=== PATIENT | female | born 1940 | race Caucasian/White ===

== ENCOUNTER 2018-05-30 18:10 | Observation (INO) ==
[2018-05-30] MEDS ORDERED: Dextrose Gel 15 GM/37.5 ML TUBE PO PRN ×2 (22:35)
[2018-05-30] MEDS ORDERED: D5% in Water 1,000 ML IVC PRN (22:35)
[2018-05-30] MEDS ORDERED: *HR* Dextrose 50 % in Water (Syg) 50 ML SYRINGE IVP PRN (22:35)
[2018-05-30] MEDS: Insulin LISPRO 300 UNITS/3 ML VIAL SQ SCH (23:03)
[2018-05-30] MEDS: hydroCHLOROthiazide 25 MG TABLET PO SCH (23:03)
[2018-05-30] MEDS: Insulin DETEMIR 100 UNIT/ML X5UNITS SQ SCH (23:03)
[2018-05-30] MEDS ORDERED: Naloxone 0.4 MG/ML INJ IVP PRN (23:50)
--- NOTE | 2018-05-31 00:06 | Internal Med History&Physical ---
Date of Encounter: 05/31/18 Time of Encounter: 21:00 Internal Medicine - H&P: HPI Chief complaint: Bilateral upper extremity numbness Admitted From: Home Plans for Post Hospital Care: Home History of present illness: Ms. Castañeda is a 77 year old female Patient was at her physical therapists when they noticed that her blood pressure was high, and she had bilateral hand numbness. She sent to the emergency room for recheck and her blood pressure was still elevated. She states she did not take her medication this morning and that that is likely why it was elevated. She began having numbness in her left hand around Wednesday and then a similar numbness on the right. She had a spinal injection about a week ago for her lower extremity pain, and she has a known history of spinal stenosis. She denies nausea, vomiting, chest pain, shortness of breath, blood in her stool, Leg swelling, falls and dysuria. She was thought to be having a stroke, and head CT showed no acute intracranial abnormalities. She does have diffuse cerebral atrophy with chronic small vessel disease. Past Med Surg Social Fam HX - Past Medical History Medical history: diabetes, GERD, hypertension, thyroid disease, other Additional medical history: spinal stenosis Psychiatric history: no psych history - Past Surgical History Surgical History: appendectomy, hysterectomy Additional surgical history: partial hysterectomy , - Social History Smoking Status: Former smoker Smokeless Tobacco Status: No Alcohol use: none Drug use: none - Family History Mother Living Status: Age at : 84 Hx Family Cardiac Disorders: Yes Hx Family Endocrine Disorder: Yes (dm) Father Living Status: Age at : 60 Internal Medicine - H&P: Meds Acetaminophen w/Cod 300-30 mg [Tylenol w/Codeine #3] 1 each PO Q6HR PRN [History] Atenolol 100 mg PO DAILY 05/30/18 [History] Insulin Glargine,Hum.rec.anlog [Lantus Solostar] 40 unit SQ HS 05/30/18 [History ] Isosorbide MONOnitrate [Isosorbide Mononitrate ER] 120 mg PO BID 05/30/18 [ History] Levothyroxine [Synthroid] 112 mcg PO 0630 05/30/18 [History] Omeprazole [PriLOSEC] 20 mg PO DAILY 05/30/18 [History] Gabapentin [Neurontin] 300 mg PO TID 05/31/18 [History] Olmesartan/Hydrochlorothiazide [Benicar Hct 40-12.5 mg Tablet] 1 tab PO DAILY [History] 3 Allergy/AdvReac Type Severity Reaction Status Date / Time No Known Allergies Allergy Verified 05/18/18 14:16 All Systems PM: A 10-system review of systems was performed and is negative for pertinent findings except as documented above in the HPI. - Constitutional Vitals: Temp Pulse Resp BP Pulse Ox 98.0 F 55 16 177/68 98 05/30/18 23:51 05/30/18 23:51 05/30/18 23:51 05/30/18 23:51 05/30/18 23:51 General appearance: Present: A&O X 3, pleasant, no acute distress - Head Head exam: Present: normal inspection - Eye Eye exam: Present: EOMI, normal appearance - Neck Neck exam general surgery: Present: full ROM. Absent: tenderness - Respiratory Respiratory exam: Present: CTAB. Absent: chest wall tenderness, wheezes - Cardiovascular Cardiovascular exam: Present: RRR, systolic murmur. Absent: diastolic murmur - GI/Abdominal GI/Abdominal exam: Present: normal bowel sounds. Absent: firm, tenderness - Extremities Exam Extremities exam: Present: full ROM, warm, radial pulses palpable and symmetrical. Absent: calf tenderness, tenderness Additional comments: weakness noted on the left lower extremity, no different form previous as per patient. - Neurological Exam Neurological exam: Present: alert, CN II-XII intact, motor sensory deficit, oriented X3. Absent: no focal deficits, strengths equal and symetr throughout, facial droop, speech deficit Additional comments: Strength in left lower extremity less than right, no change from previous as per patient. Upper extremities equal bilaterally. sensation intact throughout. Internal Med - H&P Results - Labs CBC & Chem 7: 05/31/18 05:30 05/31/18 05:30 - Assessment and plan (1) Numbness and tingling of both upper extremities Current Visit: Yes Status: Acute Assessment and plan: Likely not stroke as patient's symptoms are bilateral, and she has a known history of spinal stenosis and multiple areas of her spine. She had a spine injection earlier last month as well. Neurology consult Consider MRI to investigate any possible changes in her spine. (2) Hypertension Current Visit: Yes Status: Acute Assessment and plan: Elevated, the patient did not take her home medication. Continue home meds Continue to monitor Qualifiers: Qualified Code(s): I10 - Essential (primary) hypertension (3) Hypothyroid Current Visit: Yes Status: Acute Assessment and plan: Continue home meds Qualifiers: Qualified Code(s): E03.9 - Hypothyroidism, unspecified (4) Thrombocytopenia Current Visit: No Status: Acute Assessment and plan: Platelets were 84 in the ER, a review of her other lab work shows this is about where she was 3 years ago. Consider thrombocytopenia work up Continue to monitor. (5) Hyponatremia Current Visit: No Status: Acute Assessment and plan: Sodium was 130 in the ER. Likely low because patient did not eat much today, as she was seeing her doctor this morning, and then went to the ER right after. Will try normal saline fluid resuscitation Continue to monitor. (6) Diabetes Current Visit: Yes Status: Acute Assessment and plan: On insulin at home, regularly takes 40 units of lantus at night. Patient has not eaten today, will start her on lower dose of insulin overnight. Montior sugars ACHS Low dose sliding scale insulin. Qualifiers: Diabetes mellitus type: type 2 Qualified Code(s): E11.9 - Type 2 diabetes mellitus without complications; Z79.4 - FDC (current) use of insulin (7) DVT prophylaxis Current Visit: Yes Status: Acute Assessment and plan: SCDs as patient has low platelet levels. - Time Spent With Patient Total time spent is greater than 50% in coordination of care (as documented) at patient's floor/unit and/or counseling patient:
[2018-05-31] MEDS: *HR* Acetaminophen w/Cod 300-30 mg 1 TAB TABLET PO PRN ×2 (00:28→21:10)
[2018-05-31 06:29] LABS: Hematocrit 37.4 % (35.3-44.9); Immature Platelets 14.2 % (1.1-6.1); Mean Corpuscular HGB Conc 34.8 g/dL (31.6-35.5); Mean Corpuscular Hemoglobin 30.8 pg (28.0-33.3); Mean Corpuscular Volume 88.6 fL (83.0-100.0); Mean Platelet Volume 13.6 fL (9.4-12.4); Red Blood Count 4.22 M/mcL (3.82-4.97); Red Cell Distribution Width 13.1 % (11.5-14.5)
[2018-05-31 06:48] LABS: BUN/Creatinine Ratio 17 (6-26); Blood Urea Nitrogen 9 mg/dL (8-23); Calcium 9.6 mg/dL (8.6-10.3); Carbon Dioxide 26 mEq/L (23-29); Chloride 99 mEq/L (98-107); Glucose 182 mg/dL (70-105); Osmolality,Calculated 279 (280-300); Potassium 3.3 mEq/L (3.5-5.1); Sodium 133 mEq/L (136-145); eGFR For African Americans > 60 (> 60); eGFR For Non-African Americans > 60 (> 60)
[2018-05-31] MEDS: hydroCHLOROthiazide 25 MG TABLET PO SCH (08:08)
[2018-05-31] MEDS: Insulin LISPRO 300 UNITS/3 ML VIAL SQ SCH ×4 (08:09→21:14)
--- NOTE | 2018-05-31 13:27 | Neurology - Consult Note ---
Date of Encounter: 05/31/18 Time of Encounter: 13:32 Assessment and Plan (1) Cerebrovascular accident Current Visit: No Status: Acute Patient with elevated blood pressure who experiencing numbness to her upper extremities lasting less than few hours in duration, with total resolution. She questionable right facial droop. Patient missed two days of BP meds and symptoms may be related to focal neurological symptoms as result of elevated BP. Will recommend MRI of brain to rule out acute infarct. If MRI of brain returns negative then no further testing appears necessary. If MRI of brain returns positive for acute stroke then standard stroke work up will be recommended. Aspirin will be recommended if MRI of brain showed positive stroke. Please continue medical and supportive care. Qualifiers: CVA mechanism: unspecified Qualified Code(s): I63.9 - Cerebral infarction, unspecified History of Present Illness Chief complaint: arm/hand numbness HPI: Ms. Castañeda is a 77 year old female with PMH significant for HTN, DM, thyroid disease, lumbar spondylosis, lumbar DDD who developed elevated BP and numbness to her arms and hands. patient was receiving PT yesterday morning and she states that she missed her BP medication and was found to have elevated BP. She also experienced numbness to her both hands and arms and was admitted to be evaluated for possible stroke. At present time her symptoms essentially resolved. She has no discomforts. She did get lumbar epidural injection for back pain few days ago. Past Med Surg Social Fam HX - Past Medical History Medical history: diabetes, GERD, hypertension, thyroid disease, other Additional medical history: spinal stenosis Psychiatric history: no psych history - Past Surgical History Surgical History: appendectomy, hysterectomy Additional surgical history: partial hysterectomy , - Social History Smoking Status: Former smoker Smokeless Tobacco Status: No Alcohol use: none Drug use: none - Family History Mother Living Status: Age at : 84 Hx Family Cardiac Disorders: Yes Hx Family Endocrine Disorder: Yes (dm) Father Living Status: Age at : 60 Medications and Allergies Acetaminophen w/Cod 300-30 mg [Tylenol w/Codeine #3] 1 each PO Q6HR PRN [History] Atenolol 100 mg PO DAILY 05/30/18 [History] Insulin Glargine,Hum.rec.anlog [Lantus Solostar] 40 unit SQ HS 05/30/18 [History ] Isosorbide MONOnitrate [Isosorbide Mononitrate ER] 120 mg PO BID 05/30/18 [ History] Levothyroxine [Synthroid] 112 mcg PO 0630 05/30/18 [History] Omeprazole [PriLOSEC] 20 mg PO DAILY 05/30/18 [History] Gabapentin [Neurontin] 300 mg PO TID 05/31/18 [History] Olmesartan/Hydrochlorothiazide [Benicar Hct 40-12.5 mg Tablet] 1 tab PO DAILY [History] 3 Allergy/AdvReac Type Severity Reaction Status Date / Time No Known Allergies Allergy Verified 05/18/18 14:16 All Systems: The remainder of the systems were reviewed and are negative Physical Examination - Vital Signs Vital Signs: Initial Vital Signs Temp Pulse Resp BP Pulse Ox 97.6 F 61 16 213/75 98 05/30/18 19:20 05/30/18 19:20 05/30/18 19:20 05/30/18 19:20 05/30/18 19:20 - Constitutional General appearance: comfortable - Neurologic Detailed motor examination: full strength in all major muscle groups Motor examination - right side: 5/5: deltoids, biceps, triceps, wrist flexion, wrist extension, dermatological surgeon, hip flexors, tibialis Anterior, quadriceps, toe extension (EHL), plantarflexion Motor examination - left side: 5/5: deltoids, biceps, triceps, wrist flexion, wrist extension, hip flexors, dermatological surgeon, quadriceps, tibialis Anterior, toe extension (EHL), plantarflexion Detailed sensory examination: intact Posture: other (None) Reflexes: Biceps: 1+, Triceps: 1+, Brachioradialis: 1+, Patella: 1+, Achilles: 1 + Mental Status Examination: awake, alert, oriented to person, oriented to place, oriented to time, follows commands appropriately, answers questions appropriately, no agnosia, no aphasia, no aproxia Cranial nerve examination: PERRL, EOMI, visual arenas intact, corneal reflexes brisk symmetrically, sensory to face intact, mastication intact, no facial asymmetry is present (Slight right facial asymmetry noted, disappears when smiling), no dysarthria, hearing is intact symmetrically, soft palate elevates bilaterally upon phonation, gag reflex intact, flexes SCM and trapezius muscles symmetrically with full power, tongue protrudes midline, no atrophy or facial fasiculations present Cerebellar examination: no dysmetria, performs finger to nose and heel to cash symmetrically without ataxia, no gait ataxia, no truncal ataxia, no difficulty with rapid alternating movements Results - Laboratory Findings CBC and BMP: 05/31/18 05:30 05/31/18 05:30 Abnormal lab findings: Abnormal lab results Plt Count 60 K/mcL (140-400) L 05/31/18 05:30 MPV 13.6 fL (9.4-12.4) H 05/31/18 05:30 Immature Plt Fraction 14.2 % (1.1-6.1) H 05/31/18 05:30 Sodium 133 mEq/L (136-145) L 05/31/18 05:30 Potassium 3.3 mEq/L (3.5-5.1) L 05/31/18 05:30 Creatinine 0.53 mg/dL (0.60-1.20) L 05/31/18 05:30 Glucose 182 mg/dL (70-105) H 05/31/18 05:30 Calculated Osmolality 279 (280-300) L 05/31/18 05:30 Consult Discharge Plan - Plan Referrals: Vignesh Ragland, SHAKER OPERATOR [Primary Care Provider] -
--- NOTE | 2018-05-31 16:20 | Internal Med Progress Note ---
Date of Encounter: 05/31/18 Time of Encounter: 09:35 - Assessment and plan (1) Hypokalemia Current Visit: Yes Status: Acute Assessment and plan: PO Supplement, monitor labs. (2) DVT prophylaxis Current Visit: Yes Status: Acute Assessment and plan: SCD (3) Diabetes Current Visit: Yes Status: Chronic Assessment and plan: SSI, diabetic diet, accuchecks achs Qualifiers: Diabetes mellitus type: type 2 Qualified Code(s): E11.9 - Type 2 diabetes mellitus without complications; Z79.4 - USP (current) use of insulin (4) Hypertension Current Visit: Yes Status: Chronic Assessment and plan: Chronic. Continue home medications. Qualifiers: Hypertension type: essential hypertension Qualified Code(s): I10 - Essential (primary) hypertension (5) Hypothyroid Current Visit: Yes Status: Chronic Assessment and plan: Continue. Home medications. Qualifiers: Hypothyroidism type: unspecified Qualified Code(s): E03.9 - Hypothyroidism , unspecified (6) Numbness and tingling of both upper extremities Current Visit: Yes Status: Acute Assessment and plan: Pt reports tingling to BUE. Pt was at PT and was found to have HTN and had not taken her antihypertensive medications for 2 days. Patient reports symptoms are improving today. She has no neurological or sensory deficits. Patient was evaluated by neurology, noted facial droop. Brain MRI ordered. Awaiting results of MRI. Continue telemetry (7) Hyponatremia Current Visit: Yes Status: Acute Assessment and plan: Continue to monitor. (8) Thrombocytopenia Current Visit: Yes Status: Chronic Assessment and plan: Patient reports history of thrombocytopenia dating back 30 or 40 years. Patient reports that she has never had a workup. Continue to monitor, consider oncology consultation if level continues to decrease overnight. SCDs for DVT prophylaxis - Time Spent With Patient Total time spent is greater than 50% in coordination of care (as documented) at patient's floor/unit and/or counseling patient: less than 15 minutes - Subjective Interval history: Patient was seen and assessed at bedside at 9:35 AM. Patient reports she recently had a lumbar epidural after several months of numbness and tingling to bilateral lower extremities. Patient reports that she has had numbness and tingling of bilateral upper extremities for 1 day. She reports that she is being seen at physical therapy was found to be hypertensive, she states that she had not taken any of her antihypertensive medications for 2 days. Today, patient denies nausea, vomiting, vision changes, neck pain, headache. She denies chest pain, shortness of breath, abdominal pain, nausea or vomiting. She denies diarrhea. At this time, MRI results are not available, patient will stay again overnight be reassessed in the morning. - Constitutional Vitals: Temp Pulse Resp BP Pulse Ox 98.5 F 48 14 162/75 95 05/31/18 11:14 05/31/18 11:14 05/31/18 11:14 05/31/18 11:14 05/31/18 11:14 General appearance: Present: cooperative, A&O X 3, pleasant, no acute distress, answers questions appropriately - Head Head exam: Present: atraumatic, normal inspection, normocephalic - Eye Eye exam: Present: normal appearance, conjuntiva pink, sclera anicteric - Neck Neck exam general surgery: Present: normal inspection, supple, trachea midline. Absent: lymphadenopathy, tenderness - Respiratory Respiratory exam: Present: CTAB. Absent: accessory muscle use, rales, respiratory distress, rhonchi, wheezes - Cardiovascular Cardiovascular exam: Present: RRR, +S1, +S2. Absent: diastolic murmur, gallop, rubs, systolic murmur - GI/Abdominal GI/Abdominal exam: Present: normal bowel sounds, soft. Absent: distended, hepatomegaly, tenderness - Extremities Exam Extremities exam: Present: normal capillary refill, normal inspection, warm, radial pulses palpable and symmetrical. Absent: calf tenderness, cyanotic, pedal edema, tenderness - Neurological Exam Neurological exam: Present: alert, oriented X3, no focal deficits, facial droop. Absent: speech deficit - Skin Skin exam: Present: dry, intact, normal color, warm. Absent: rash Internal Medicine: Result - Labs CBC & Chem 7: 05/31/18 05:30 05/31/18 05:30 Labs: Short CBC 05/31/18 Range/Units 05:30 WBC 4.8 (4.3-11.1) K/mcL Hgb 13.0 (11.5-15.4) g/dL Hct 37.4 (35.3-44.9) % Plt Count 60 L (140-400) K/mcL BMP 05/31/18 05:30 Sodium 133 L Potassium 3.3 L Chloride 99 Carbon Dioxide 26 BUN 9 Creatinine 0.53 L Glucose 182 H Calcium 9.6 - VTE Documentation of Mechanical Device: Graduated compression elastic hosiery Consult Discharge Plan - Plan Referrals: Vignesh Ragland AIRPORT OPERATIONS SPECIALIST [Primary Care Provider] -
[2018-05-31] MEDS: Insulin DETEMIR 100 UNIT/ML X5UNITS SQ SCH (21:11)
[2018-06-01 07:14] VITALS: BP 160/87
[2018-06-01 07:27] LABS: Eosinophils % 1.3 %; Mean Corpuscular Volume 88.3 fL (83.0-100.0)
[2018-06-01 07:29] LABS: Eosinophils # 0.1 K/mcL (0.0-0.6); Hematocrit 39.1 % (35.3-44.9); Hemoglobin 13.9 g/dL (11.5-15.4); Immature Platelets 13.7 % (1.1-6.1); Lymphocytes # 1.4 K/mcL (0.6-4.6); Lymphocytes % 31.9 %; Mean Corpuscular HGB Conc 35.5 g/dL (31.6-35.5); Mean Corpuscular Hemoglobin 31.4 pg (28.0-33.3); Mean Platelet Volume 13.4 fL (9.4-12.4); Monocytes # 0.4 K/mcL (0.0-1.3); Monocytes % 9.7 %; Neutrophils # 2.6 K/mcL (1.6-8.9); Platelet Count 59 K/mcL (140-400); Red Blood Count 4.43 M/mcL (3.82-4.97); Segmented Neutrophils % 57.1 %
[2018-06-01 07:41] LABS: BUN/Creatinine Ratio 18 (6-26); Blood Urea Nitrogen 11 mg/dL (8-23); Calcium 9.5 mg/dL (8.6-10.3); Carbon Dioxide 26 mEq/L (23-29); Chloride 101 mEq/L (98-107); Glucose 139 mg/dL (70-105); Osmolality,Calculated 278 (280-300); Potassium 3.6 mEq/L (3.5-5.1); Sodium 133 mEq/L (136-145); eGFR For African Americans > 60 (> 60); eGFR For Non-African Americans > 60 (> 60)
[2018-06-01] MEDS: Insulin LISPRO 300 UNITS/3 ML VIAL SQ SCH (07:41)
--- NOTE | 2018-06-01 07:55 | Discharge Summary ---
- NOTES TO OUTPATIENT PROVIDER Notes to Outpatient Provider: Pt was admitted and evaluated for BUE numbness and tingling and mild facial droop. Pt was being seen at PT and was found to have BUE numbness and tingling, pt had not had any antihypertensives for 2 days. MRI brain negative for acute infarct. Pt has received her medications and symptoms resolved. She still has mild hypertension and HTCZ was increased to 25mg po daily. Recommend close follow up after discharge for medication adjustments. Date of Encounter: 06/01/18 Time of Encounter: 09:40 - Discharge Diagnosis (1) Hypokalemia Priority: Secondary Status: Resolved (2) DVT prophylaxis Priority: Secondary Status: Acute Assessment and Plan: SCDs ordered. (3) Diabetes Priority: Secondary Status: Chronic Assessment and Plan: Resume home medications and accucheck regimen, diabetic diet. Qualifiers: Diabetes mellitus type: type 2 Diabetes mellitus terminal supervisor insulin use: unspecified snf insulin use status Diabetes mellitus complication status : without complication Qualified Code(s): E11.9 - Type 2 diabetes mellitus without complications (4) Hypertension Priority: Secondary Status: Chronic Assessment and Plan: Chronic. Continue home medications. Mild hypertension, HCTZ has been increased to 25mg po daily. Follow up with PCP for monitoring and medication changes as needed. Qualifiers: Hypertension type: essential hypertension Qualified Code(s): I10 - Essential (primary) hypertension (5) Hypothyroid Priority: Secondary Status: Chronic Assessment and Plan: Continue home medications. Qualifiers: Hypothyroidism type: unspecified Qualified Code(s): E03.9 - Hypothyroidism , unspecified (6) Numbness and tingling of both upper extremities Priority: Primary Status: Acute Assessment and Plan: Pt reports tingling to BUE that has resolved. Secondary to HTN, noncompliance with medication regimen. She has no neurological or sensory deficits. Patient was evaluated by neurology, I appreciate Dr. Stark's recommendations. Brain MRI without acute infarct, hemmorrhage. Chronic small vessel ischemic white matter disease and chronic lacunar infarcts within bilateral basal ganglia were noted. There is noted diffuse cerebral volume loss and left sphenoid and left posterior ethmoid air cell sinus disease. Brain MRI 05/31/18 13:14 IMPRESSION: No acute infarct, intracranial hemorrhage, or significant mass effect. Chronic small vessel ischemic white matter disease. Chronic lacunar infarcts within bilateral basal ganglia. Diffuse cerebral volume loss. Left sphenoid and left posterior ethmoid air cell sinus disease. D/ / 05/31/2018 16:42:17 Luis Dean MD / earsushma Interpreting Provider: Luis Dean MD Continue telemetry (7) Hyponatremia Priority: Secondary Status: Acute Assessment and Plan: Improving. (8) Thrombocytopenia Priority: Secondary Status: Chronic Assessment and Plan: Patient reports history of thrombocytopenia dating back 30 or 40 years. Patient reports that she has never had a workup. [facility] today is a [facility] , appointment will be scheduled by them. SCDs for DVT prophylaxis Hospital course: Ms. Castañeda is a 77 year old female who presented to the emergency department from physical therapy with numbness and tingling of bilateral upper extremities. Symptoms resolved over the course of her stay. Patient was found to have not taken her antihypertensives for 2 days prior to admission. She was evaluated by neurology, no further testing is required. Brain MRI is negative for any acute processes, infarct, hemorrhage or mass. Patient reports resolution of symptoms prior to discharge today. Her labs were stable with mild hyponatremia. Patient also with chronic thrombocytopenia that she states she has had for at least 30 years. Patient will need to follow up with hematology oncology for continued evaluation. Request was entered. Patient is stable and appropriate for discharge. Discharge discussed with: patient, family - Time Spent with Patient Total time spent providing and/or coordinating discharge services: Less than 30 minutes - Discharge Medications Prescriptions: hydroCHLOROthiazide [Hydrochlorothiazide] 25 mg PO DAILY #30 tablet Home Medications: Acetaminophen w/Cod 300-30 mg [Tylenol w/Codeine #3] 1 each PO Q6HR PRN [History] Atenolol 100 mg PO DAILY 05/30/18 [History] Insulin Glargine,Hum.rec.anlog [Lantus Solostar] 40 unit SQ HS 05/30/18 [History ] Isosorbide MONOnitrate [Isosorbide Mononitrate ER] 120 mg PO BID 05/30/18 [ History] Levothyroxine [Synthroid] 112 mcg PO 0630 05/30/18 [History] Omeprazole [PriLOSEC] 20 mg PO DAILY 05/30/18 [History] Gabapentin [Neurontin] 300 mg PO TID 05/31/18 [History] Olmesartan/Hydrochlorothiazide [Benicar Hct 40-12.5 mg Tablet] 1 tab PO DAILY [History] hydroCHLOROthiazide [Hydrochlorothiazide] 25 mg PO DAILY #30 tablet 06/01/18 [Rx ] Allergies/Adverse Reactions: 3 Allergy/AdvReac Type Severity Reaction Status Date / Time No Known Allergies Allergy Verified 05/18/18 14:16 Date of admission: 05/30/18 19:05 Primary care physician: Vignesh Ragland CNP Consults: 05/31/18 12:58 Consult to Neurology [CONS] Routine Consulting Provider: Neurology [facility] Reason for Consult: Numbness and tingling to BUE, recent epidural for low back pain. No injury to neck or back since. No deficit noted. Time Notified: 10:30 Call Completed: Yes Discharging clinician: Vivi Perry Anticipated date of discharge: 06/01/18 - Constitutional Vitals: Temp Pulse Resp BP Pulse Ox 97.3 F L 53 16 160/87 96 06/01/18 07:07 06/01/18 07:07 06/01/18 07:07 06/01/18 07:07 06/01/18 07:07 General appearance: Present: cooperative, A&O X 3, pleasant, no acute distress, answers questions appropriately - Head Head exam: Present: atraumatic, normal inspection, normocephalic - Eye Eye exam: Present: normal appearance, conjuntiva pink, sclera anicteric - Neck Neck exam general surgery: Present: supple, trachea midline. Absent: lymphadenopathy, tenderness - Respiratory Respiratory exam: Present: CTAB. Absent: accessory muscle use, chest wall tenderness, rales, respiratory distress, rhonchi, wheezes - Cardiovascular Cardiovascular exam: Present: RRR, +S1, +S2. Absent: diastolic murmur, gallop, rubs, systolic murmur - GI/Abdominal GI/Abdominal exam: Present: normal bowel sounds, soft. Absent: distended, hepatomegaly, tenderness - Extremities Exam Extremities exam: Present: normal capillary refill, normal inspection, warm, radial pulses palpable and symmetrical. Absent: calf tenderness, cyanotic, pedal edema, tenderness - Neurological Exam Neurological exam: Present: alert, oriented X3, no focal deficits. Absent: facial droop, speech deficit - Skin Skin exam: Present: dry, intact, normal color, warm. Absent: rash - Patient Status Disposition: Home, Self-Care Condition: Good Functional capacity at discharge: independent ambulation Overall status at discharge: patient is back to baseline - Discharge Instructions Instructions: Chronic Hypertension (DC), Chronic Hypertension (GEN) Follow Up With: Vignesh Ragland DATA COMMUNICATIONS ANALYST [Primary Care Provider] - (Our apologies; due to the holiday we are unable to schedule your appointment. Please call and schedule a hospital follow up appointment. Thank You) Additional Instructions: Please follow up with your PCP in the next 3-5 days for a recheck and to discuss your medications and hypertension. Return to the ER as needed for any other problems or concerns, or if your symptoms return or worsen. Take your medications daily and as directed, do not skip doses. Return to your normal diet and activities as tolerated. - Diet and Activity Activity: increase activity as tolerated Diet: diabetic diet - VTE Documentation of Mechanical Device: Graduated compression elastic hosiery
[2018-06-01] MEDS ORDERED: hydroCHLOROthiazide 25 MG TABLET PO SCH (09:00)
--- NOTE | 2018-06-01 09:08 | Neurology Progress Note ---
Date of Encounter: 06/01/18 Time of Encounter: 09:05 Assessment and Plan (1) Numbness and tingling of both upper extremities Current Visit: Yes Status: Acute Likely related to elevated BP. Resolved. No evidence of acute infarct on MRI of brain. Patient is advised to take her antihypertentive medications as directed and follow up with her PCP. No further testing recommended from neurology perspective. Okay to be discharged home. Subjective Principal diagnosis: TIA Interval history: Patient seen and examined. She is feeling better and denies any significant neurological discomforts. Numbness and tingling in her arms resolved. MRI of brain showed no acute intracranial abnormality. Objective - Constitutional Vitals: Temp Pulse Resp BP Pulse Ox 97.3 F L 53 16 160/87 96 06/01/18 07:07 06/01/18 07:07 06/01/18 07:07 06/01/18 07:07 06/01/18 08:58 - Neurological Exam Sensorimotor examination: Present: intact Motor Examination: Present: grossly full strength in all extremities, full strength in all major muscle groups Motor examination - right side: 5/5: deltoids, biceps, triceps, wrist flexion, wrist extension, steamer tender, hip flexors, tibialis Anterior, quadriceps, toe extension (EHL), plantarflexion Motor examination - left side: 5/5: deltoids, biceps, triceps, wrist flexion, wrist extension, hip flexors, steamer tender, quadriceps, tibialis Anterior, toe extension (EHL), plantarflexion Sensation intact: Present: intact (Grossly intact) Posture: Present: other (None) Reflex and gait examination: intact Reflexes: Biceps: 2+, Triceps: 2+, Brachioradialis: 2+, Patella: 2+, Achilles: 2 + Mental Status Examination: Present: awake, alert, oriented to person, oriented to place, oriented to time, follows commands appropriately, answers questions appropriately, no agnosia, no aphasia, no aproxia Cranial nerve examination: Present: PERRL, EOMI, visual arenas intact, corneal reflexes brisk symmetrically, sensory to face intact, mastication intact, no facial asymmetry is present (Slight right facial asymmetry noted, disappears when smiling), no dysarthria, hearing is intact symmetrically, soft palate elevates bilaterally upon phonation, gag reflex intact, flexes SCM and trapezius muscles symmetrically with full power, tongue protrudes midline, no atrophy or facial fasiculations present Cerebellar examination: Present: no dysmetria, performs finger to nose and heel to cash symmetrically without ataxia, no gait ataxia, no truncal ataxia, no difficulty with rapid alternating movements - VTE Documentation of Mechanical Device: Graduated compression elastic hosiery Results - Laboratory Findings CBC and BMP: 06/01/18 06:37 06/01/18 06:37 Abnormal lab findings: Abnormal lab results Plt Count 59 K/mcL (140-400) L 06/01/18 06:37 MPV 13.4 fL (9.4-12.4) H 06/01/18 06:37 Immature Plt Fraction 13.7 % (1.1-6.1) H 06/01/18 06:37 Sodium 133 mEq/L (136-145) L 06/01/18 06:37 Glucose 139 mg/dL (70-105) H 06/01/18 06:37 POC Glucose 171 mg/dL (70-99) H 05/31/18 21:13 Calculated Osmolality 278 (280-300) L 06/01/18 06:37 - Diagnostic Findings Additional findings: EXAMINATION: MRI OF THE BRAIN WITHOUT CONTRAST 05/31/2018 3:57 pm TECHNIQUE: Multiplanar multisequence MRI of the brain was performed without the administration of intravenous contrast. COMPARISON: CT head on 05/30/2018 HISTORY: ORDERING SYSTEM PROVIDED HISTORY: CVA FINDINGS: INTRACRANIAL STRUCTURES/VENTRICLES: There is no acute infarct. There is mild to moderate amount of nonspecific T2 hyperintense white matter lesions bilaterally, which are most often attributed to chronic small vessel ischemic white matter disease. There are chronic appearing bilateral lacunar infarcts. There is hemosiderin staining within the left basal ganglia associated with a chronic lacunar infarct. Moderate prominence of ventricles and sulci is compatible with cerebral volume loss. No abnormal susceptibility artifact is identified. No midline shift. No significant mass effect. ORBITS: The visualized portion of the orbits demonstrate no acute abnormality. SINUSES: There is complete opacification of the left sphenoid sinus and left posterior ethmoid air cells. The remainder of the paranasal sinuses are essentially clear. The mastoid air cells are clear. BONES/SOFT TISSUES: The bone marrow signal intensity appears normal. The soft tissues demonstrate no acute abnormality. MR/MR head/brain wo con IMPRESSION: No acute infarct, intracranial hemorrhage, or significant mass effect. Chronic small vessel ischemic white matter disease. Chronic lacunar infarcts within bilateral basal ganglia. Diffuse cerebral volume loss. Left sphenoid and left posterior ethmoid air cell sinus disease. D/ / 05/31/2018 16:42:17 Luis Dean MD / [employer] Interpreting Provider: Luis Dean MD Consult Discharge Plan - Plan Additional Instructions: Please follow up with your PCP in the next 3-5 days for a recheck and to discuss your medications and hypertension. Return to the ER as needed for any other problems or concerns, or if your symptoms return or worsen. Take your medications daily and as directed, do not skip doses. Return to your normal diet and activities as tolerated. Referrals: Vignesh Ragland CNP [Primary Care Provider] - Prescriptions: hydroCHLOROthiazide [Hydrochlorothiazide] 25 mg PO DAILY #30 tablet
== END 2018-06-01 10:58 | disposition home or self-care (01) ==
LOC: 3BNU
PROVIDERS: ADMIT Internal Medicine; ATTEND Internal Medicine

== ENCOUNTER 2019-09-02 09:52 | Inpatient (IN) ==
[2019-09-02] MEDS ORDERED: Naloxone 0.4 MG/ML INJ IVP PRN (14:00)
[2019-09-02] MEDS ORDERED: Acetaminophen 325 MG TABLET PO PRN (14:00)
[2019-09-02] MEDS ORDERED: *HR* HYDROcodone/Acet 5/325 mg TABLET PO PRN (14:00)
[2019-09-02] MEDS ORDERED: *HR* Dextrose 50 % in Water (Syg) 50 ML SYRINGE IVP PRN (14:04)
[2019-09-02] MEDS ORDERED: Dextrose Gel 15 GM/37.5 ML TUBE PO PRN ×2 (14:04)
[2019-09-02] MEDS ORDERED: D5% in Water 1,000 ML IVC PRN (14:04)
[2019-09-02] MEDS: *HR* OxyCODONE Immed Rel 5 MG TABLET PO PRN (14:20)
[2019-09-02] MEDS ORDERED: Morphine Sulfate 2 MG/ML SYRINGE IVP ONE (15:00)
[2019-09-02] MEDS: Ondansetron 4 MG/2 ML VIAL IVP PRN (15:15)
[2019-09-02] MEDS: Insulin LISPRO 300 UNITS/3 ML VIAL SQ SCH (17:18)
[2019-09-02] MEDS ORDERED: Scopolamine Patch 1.5 MG PATCH.TD72 TD SCH (17:30)
[2019-09-02] MEDS: Gabapentin 300 MG CAPSULE PO SCH (21:53)
[2019-09-02] MEDS ORDERED: Melatonin 3 MG TABLET PO PRN (21:56)
[2019-09-03] MEDS: Ondansetron 4 MG/2 ML VIAL IVP PRN ×2 (00:15→20:26)
[2019-09-03] MEDS: *HR* OxyCODONE Immed Rel 5 MG TABLET PO PRN (00:15)
[2019-09-03] MEDS: Isosorbide MONOnitrate (24 HR) 60 MG TAB.ER.24H PO SCH (08:22)
[2019-09-03] MEDS: Gabapentin 300 MG CAPSULE PO SCH ×3 (08:23→20:03)
[2019-09-03] MEDS: hydroCHLOROthiazide 25 MG TABLET PO SCH (08:23)
[2019-09-03] MEDS: amLODIPine 5 MG TABLET PO SCH (08:24)
[2019-09-03] MEDS: Insulin LISPRO 300 UNITS/3 ML VIAL SQ SCH ×3 (08:47→16:44)
[2019-09-03 10:44] LABS: Basophils % 0.2 %; Eosinophils # 0.2 K/mcL (0.0-0.6); Eosinophils % 1.6 %; Hematocrit 35.3 % (35.3-44.9); Immature Granulocytes % 0.5 % (0-4); Lymphocytes # 1.4 K/mcL (0.6-4.6); Mean Corpuscular Hemoglobin 30.8 pg (28.0-33.3); Mean Corpuscular Volume 90.7 fL (83.0-100.0); Mean Platelet Volume 13.4 fL (9.4-12.4); Monocytes # 0.6 K/mcL (0.0-1.3); Monocytes % 5.4 %; Neutrophils # 9.5 K/mcL (1.6-8.9); Platelet Count 100 K/mcL (140-400); Red Blood Count 3.89 M/mcL (3.82-4.97); Red Cell Distribution Width 13.3 % (11.5-14.5); Segmented Neutrophils % 80.3 %; White Blood Count 11.9 K/mcL (4.3-11.1)
[2019-09-03] MEDS ORDERED: Prochlorperazine 10 MG/2 ML VIAL IVP PRN (10:50)
[2019-09-03 11:02] LABS: BUN/Creatinine Ratio 20 (6-26); Blood Urea Nitrogen 15 mg/dL (8-23); Carbon Dioxide 28 mEq/L (23-29); Chloride 96 mEq/L (98-107); Glucose 212 mg/dL (70-105); Magnesium 1.3 mg/dL (1.6-2.6); Osmolality,Calculated 271 (280-300); Potassium 3.6 mEq/L (3.5-5.1); Sodium 127 mEq/L (136-145); eGFR For African Americans > 60 (> 60); eGFR For Non-African Americans > 60 (> 60)
[2019-09-03] MEDS: 0.9 % Sodium Chloride 1,000 ML IVC SCH (15:14)
[2019-09-04 04:47] LABS: Immature Granulocytes % 0.4 % (0-4); Mean Corpuscular Hemoglobin 30.8 pg (28.0-33.3); Red Cell Distribution Width 13.4 % (11.5-14.5)
[2019-09-04 04:49] LABS: Basophils % 0.3 %; Eosinophils # 0.3 K/mcL (0.0-0.6); Eosinophils % 2.5 %; Hematocrit 35.3 % (35.3-44.9); Hemoglobin 11.8 g/dL (11.5-15.4); Immature Platelets 11.8 % (1.1-6.1); Lymphocytes # 1.8 K/mcL (0.6-4.6); Lymphocytes % 17.5 %; Mean Corpuscular HGB Conc 33.4 g/dL (31.6-35.5); Mean Corpuscular Volume 92.2 fL (83.0-100.0); Mean Platelet Volume 13.2 fL (9.4-12.4); Monocytes # 0.9 K/mcL (0.0-1.3); Monocytes % 8.8 %; Neutrophils # 7.3 K/mcL (1.6-8.9); Platelet Count 70 K/mcL (140-400); Red Blood Count 3.83 M/mcL (3.82-4.97); Segmented Neutrophils % 70.5 %; White Blood Count 10.4 K/mcL (4.3-11.1)
[2019-09-04 05:08] LABS: BUN/Creatinine Ratio 16 (6-26); Blood Urea Nitrogen 15 mg/dL (8-23); Calcium 8.9 mg/dL (8.6-10.3); Carbon Dioxide 24 mEq/L (23-29); Chloride 97 mEq/L (98-107); Glucose 174 mg/dL (70-105); Osmolality,Calculated 269 (280-300); Potassium 3.7 mEq/L (3.5-5.1); Sodium 127 mEq/L (136-145); eGFR For African Americans > 60 (> 60); eGFR For Non-African Americans 59 (> 60)
[2019-09-04] MEDS ORDERED: 0.9 % Sodium Chloride 1,000 ML IVC SCH (07:42)
[2019-09-04] MEDS: Gabapentin 300 MG CAPSULE PO SCH ×3 (09:24→21:45)
[2019-09-04] MEDS: Isosorbide MONOnitrate (24 HR) 60 MG TAB.ER.24H PO SCH (09:24)
[2019-09-04] MEDS: hydroCHLOROthiazide 25 MG TABLET PO SCH (09:24)
[2019-09-04] MEDS: amLODIPine 5 MG TABLET PO SCH (09:24)
[2019-09-04] MEDS: Insulin LISPRO 300 UNITS/3 ML VIAL SQ SCH ×3 (09:30→16:58)
[2019-09-04] MEDS: Ondansetron 4 MG/2 ML VIAL IVP PRN ×2 (09:51→21:21)
[2019-09-04] MEDS ORDERED: Ethanol\\Acetic Acid\\Na Ace\\Ben 1,000 ML IRRIG.SOLN IR ONE (16:38)
[2019-09-04] MEDS ORDERED: *HR* FentaNYL (PF) 100 MCG/2 ML VIAL ONE (16:44)
[2019-09-04] MEDS ORDERED: *HR* Midazolam HCl 2 MG/2 ML VIAL ONE (16:44)
[2019-09-04] MEDS ORDERED: *HR* Propofol 200 MG/20 ML VIAL IVP ONE (16:46)
[2019-09-04] MEDS ORDERED: ceFAZolin 2,000 MG in Water for inj. (sterile) 20 ML IVP ONE (17:12)
[2019-09-04] MEDS ORDERED: Tranexamic Acid 1,000 MG/10 ML VIAL ONE (17:36)
[2019-09-04] MEDS ORDERED: Dexamethasone 4 MG/ML VIAL ONE (17:36)
[2019-09-04] MEDS ORDERED: Lidocaine -MPF 1% 5 ML AMPUL ONE (17:36)
[2019-09-04] MEDS ORDERED: *HR* Rocuronium Bromide 50 MG/5 ML VIAL ONE (17:36)
[2019-09-04] MEDS ORDERED: Ondansetron 4 MG/2 ML VIAL ONE (17:36)
[2019-09-04] MEDS ORDERED: Acetaminophen IV 1,000 MG/100 ML INFUS..BTL ONE (17:52)
[2019-09-04] MEDS ORDERED: *HR* OxyCODONE Immed Rel 5 MG TABLET PO PRN (18:04)
[2019-09-04] MEDS: *HR* HYDROmorphone (PF) 1 MG/ML SYRINGE IVP PRN ×2 (18:37→18:57)
[2019-09-04 19:15] LABS: Hematocrit 30.7 % (35.3-44.9); Hemoglobin 10.5 g/dL (11.5-15.4)
[2019-09-04] MEDS ORDERED: Melatonin 3 MG TABLET PO PRN (19:36)
[2019-09-04] MEDS ORDERED: MOM Conc 10 ML UD.LIQ PO PRN (19:36)
[2019-09-04] MEDS ORDERED: Temazepam 15 MG CAPSULE PO PRN (19:36)
[2019-09-04] MEDS ORDERED: Prochlorperazine 10 MG/2 ML VIAL IVP PRN (19:36)
[2019-09-04] MEDS ORDERED: Sennosides 8.6 MG TABLET PO PRN (19:36)
[2019-09-04] MEDS ORDERED: Ondansetron 4 MG/2 ML VIAL IVP PRN (19:36)
[2019-09-04] MEDS ORDERED: Dextrose Gel 15 GM/37.5 ML TUBE PO PRN ×2 (19:36)
[2019-09-04] MEDS ORDERED: *HR* Promethazine 25 MG/ML VIAL IVP PRN (19:36)
[2019-09-04] MEDS ORDERED: Naloxone 0.4 MG/ML INJ IVP PRN ×2 (19:36)
[2019-09-04] MEDS ORDERED: *HR* Dextrose 50 % in Water (Syg) 50 ML SYRINGE IVP PRN (19:36)
[2019-09-04] MEDS ORDERED: Acetaminophen 325 MG TABLET PO PRN (19:36)
[2019-09-04] MEDS ORDERED: D5% in Water 1,000 ML IVC PRN (19:36)
[2019-09-04 21:47] LABS: ABG Base Excess -3 mEq/L (-2 to 3); ABG HCO3 22 mEq/L (21-27); ABG Oxygen Saturation 98 % (95-98); ABG PCO2 37 mmHg (35-45); ABG PH 7.38 pH Units (7.32-7.45); ABG PO2 113 mmHg (85-104); ABG TCO2 23 mEq/L (20-26)
[2019-09-04 22:28] LABS: Alanine Aminotransferase 10 Units/L (7-52); Albumin 2.5 g/dL (3.5-5.7); Alkaline Phosphatase 56 Units/L (34-104); Aspartate Amino Transferase 20 Units/L (13-39); BUN/Creatinine Ratio 15 (6-26); Bilirubin,Total 0.9 mg/dL (0.3-1.0); Blood Urea Nitrogen 13 mg/dL (8-23); Calcium 7.8 mg/dL (8.6-10.3); Carbon Dioxide 21 mEq/L (23-29); Chloride 103 mEq/L (98-107); Globulin 2.4 g/dL (2.4-3.5); Glucose 251 mg/dL (70-105); Magnesium 1.5 mg/dL (1.6-2.6); Osmolality,Calculated 281 (280-300); Potassium 4.3 mEq/L (3.5-5.1); Sodium 131 mEq/L (136-145); Total Protein 4.9 g/dL (6.4-8.9); eGFR For African Americans > 60 (> 60); eGFR For Non-African Americans > 60 (> 60)
[2019-09-04 22:29] LABS: Hematocrit 27.3 % (35.3-44.9); Immature Platelets 12.5 % (1.1-6.1); Mean Corpuscular Hemoglobin 31.8 pg (28.0-33.3); Mean Corpuscular Volume 96.5 fL (83.0-100.0); Mean Platelet Volume 12.8 fL (9.4-12.4); Red Blood Count 2.83 M/mcL (3.82-4.97); Red Cell Distribution Width 13.6 % (11.5-14.5); Troponin I 0.03 ng/mL (< 0.04); White Blood Count 21.1 K/mcL (4.3-11.1)
[2019-09-04] MEDS ORDERED: Ketorolac 30 MG/ML VIAL IVP PRN (22:39)
[2019-09-05] MEDS: Acetaminophen IV 1,000 MG/100 ML INFUS..BTL IVPB SCH (00:16)
[2019-09-05 02:08] LABS: Basophils % 0.1 %; Eosinophils % 0.1 %
[2019-09-05 02:10] LABS: Hematocrit 27.7 % (35.3-44.9); Hemoglobin 9.3 g/dL (11.5-15.4); Immature Granulocytes % 0.7 % (0-4); Immature Platelets 9.7 % (1.1-6.1); Lymphocytes # 0.9 K/mcL (0.6-4.6); Lymphocytes % 4.9 %; Mean Corpuscular HGB Conc 33.6 g/dL (31.6-35.5); Mean Corpuscular Hemoglobin 30.9 pg (28.0-33.3); Mean Platelet Volume 12.4 fL (9.4-12.4); Monocytes # 0.8 K/mcL (0.0-1.3); Monocytes % 4.2 %; Neutrophils # 17.2 K/mcL (1.6-8.9); Platelet Count 92 K/mcL (140-400); Red Blood Count 3.01 M/mcL (3.82-4.97); Red Cell Distribution Width 13.5 % (11.5-14.5); White Blood Count 19.1 K/mcL (4.3-11.1)
[2019-09-05 02:29] LABS: BUN/Creatinine Ratio 18 (6-26); Blood Urea Nitrogen 17 mg/dL (8-23); Carbon Dioxide 21 mEq/L (23-29); Chloride 101 mEq/L (98-107); Glucose 273 mg/dL (70-105); Osmolality,Calculated 283 (280-300); Potassium 4.5 mEq/L (3.5-5.1); Sodium 131 mEq/L (136-145); Troponin I 0.03 ng/mL (< 0.04); eGFR For African Americans > 60 (> 60); eGFR For Non-African Americans 59 (> 60)
[2019-09-05] MEDS ORDERED: Acetaminophen IV 1,000 MG/100 ML INFUS..BTL IVPB PRN (06:06)
[2019-09-05] MEDS: Insulin LISPRO 300 UNITS/3 ML VIAL SQ SCH ×3 (08:00→16:34)
[2019-09-05] MEDS: Gabapentin 300 MG CAPSULE PO SCH ×3 (08:01→21:58)
[2019-09-05] MEDS: Multivit/Ca/Min/Fe/FA 1 TAB TABLET PO SCH (08:01)
[2019-09-05] MEDS: Ascorbic Acid 500 MG TABLET PO SCH ×2 (08:02→16:34)
[2019-09-05] MEDS: Isosorbide MONOnitrate (24 HR) 60 MG TAB.ER.24H PO SCH (08:02)
[2019-09-05] MEDS: amLODIPine 5 MG TABLET PO SCH (08:02)
[2019-09-05] MEDS: hydroCHLOROthiazide 25 MG TABLET PO SCH (08:02)
[2019-09-05] MEDS: Ondansetron 4 MG/2 ML VIAL IVP PRN (08:20)
[2019-09-05] MEDS: *HR* HYDROcodone/Acet 5/325 mg TABLET PO PRN (12:46)
[2019-09-05 13:55] LABS: Basophils % 0.1 %; Eosinophils % 0.1 %; Hematocrit 23.2 % (35.3-44.9); Hemoglobin 7.8 g/dL (11.5-15.4); Immature Granulocytes % 0.8 % (0-4); Lymphocytes # 2.2 K/mcL (0.6-4.6); Lymphocytes % 12.4 %; Mean Corpuscular HGB Conc 33.6 g/dL (31.6-35.5); Mean Corpuscular Volume 92.1 fL (83.0-100.0); Monocytes # 1.6 K/mcL (0.0-1.3); Monocytes % 9.1 %; Neutrophils # 13.7 K/mcL (1.6-8.9); Platelet Count 122 K/mcL (140-400); Red Blood Count 2.52 M/mcL (3.82-4.97); Red Cell Distribution Width 13.6 % (11.5-14.5); Segmented Neutrophils % 77.5 %; White Blood Count 17.7 K/mcL (4.3-11.1)
[2019-09-05] MEDS: Aspirin Enteric Coated 81 MG Tablet PO SCH (16:31)
[2019-09-05] MEDS: 0.9 % Sodium Chloride 1,000 ML IVC SCH (21:34)
[2019-09-05 22:11] LABS: Hematocrit 20.1 % (35.3-44.9); Hemoglobin 6.8 g/dL (11.5-15.4)
[2019-09-06] MEDS ORDERED: 0.9 % Sodium Chloride 250 ML ONE (05:12)
[2019-09-06 06:07] LABS: BUN/Creatinine Ratio 25 (6-26); Blood Urea Nitrogen 20 mg/dL (8-23); Carbon Dioxide 16 mEq/L (23-29); Chloride 101 mEq/L (98-107); Glucose 248 mg/dL (70-105); Osmolality,Calculated 277 (280-300); Potassium 4.3 mEq/L (3.5-5.1); Sodium 128 mEq/L (136-145); eGFR For African Americans > 60 (> 60); eGFR For Non-African Americans > 60 (> 60)
[2019-09-06 06:12] LABS: Basophils % 0.2 %; Eosinophils # 0.1 K/mcL (0.0-0.6); Eosinophils % 0.5 %; Hematocrit 20.4 % (35.3-44.9); Immature Granulocytes % 0.3 % (0-4); Lymphocytes # 2.4 K/mcL (0.6-4.6); Lymphocytes % 19.3 %; Mean Corpuscular HGB Conc 34.3 g/dL (31.6-35.5); Mean Corpuscular Hemoglobin 31.4 pg (28.0-33.3); Mean Platelet Volume 12.3 fL (9.4-12.4); Monocytes # 1.3 K/mcL (0.0-1.3); Monocytes % 10.4 %; Neutrophils # 8.4 K/mcL (1.6-8.9); Platelet Count 107 K/mcL (140-400); Red Blood Count 2.23 M/mcL (3.82-4.97); Red Cell Distribution Width 14.1 % (11.5-14.5); Segmented Neutrophils % 69.3 %; White Blood Count 12.2 K/mcL (4.3-11.1)
[2019-09-06 06:13] LABS: Mean Corpuscular Volume 91.5 fL (83.0-100.0)
[2019-09-06] MEDS: *HR* HYDROcodone/Acet 5/325 mg TABLET PO PRN (08:26)
[2019-09-06] MEDS: Aspirin Enteric Coated 81 MG Tablet PO SCH (08:27)
[2019-09-06] MEDS: Gabapentin 300 MG CAPSULE PO SCH ×3 (08:27→21:06)
[2019-09-06] MEDS: Ascorbic Acid 500 MG TABLET PO SCH ×2 (08:27→17:14)
[2019-09-06] MEDS: Isosorbide MONOnitrate (24 HR) 60 MG TAB.ER.24H PO SCH (08:27)
[2019-09-06] MEDS: amLODIPine 5 MG TABLET PO SCH (08:28)
[2019-09-06] MEDS: hydroCHLOROthiazide 25 MG TABLET PO SCH (08:28)
[2019-09-06] MEDS: Multivit/Ca/Min/Fe/FA 1 TAB TABLET PO SCH (08:28)
[2019-09-06] MEDS: Insulin LISPRO 300 UNITS/3 ML VIAL SQ SCH ×3 (08:34→17:14)
[2019-09-06 10:07] LABS: Hematocrit 24.2 % (35.3-44.9); Hemoglobin 8.1 g/dL (11.5-15.4)
[2019-09-06] MEDS: *HR* OxyCODONE Immed Rel 5 MG TABLET PO PRN (10:46)
[2019-09-07 06:19] LABS: Mean Corpuscular HGB Conc 33.3 g/dL (31.6-35.5); Mean Corpuscular Hemoglobin 31.4 pg (28.0-33.3); Mean Corpuscular Volume 94.1 fL (83.0-100.0); Mean Platelet Volume 11.6 fL (9.4-12.4); Platelet Count 108 K/mcL (140-400); Red Blood Count 2.55 M/mcL (3.82-4.97); Red Cell Distribution Width 13.9 % (11.5-14.5); White Blood Count 8.3 K/mcL (4.3-11.1)
[2019-09-07 06:38] LABS: BUN/Creatinine Ratio 20 (6-26); Blood Urea Nitrogen 12 mg/dL (8-23); Carbon Dioxide 23 mEq/L (23-29); Chloride 97 mEq/L (98-107); Glucose 244 mg/dL (70-105); Osmolality,Calculated 278 (280-300); Sodium 130 mEq/L (136-145); eGFR For African Americans > 60 (> 60); eGFR For Non-African Americans > 60 (> 60)
[2019-09-07] MEDS: Ringers Solution, Lactated 1,000 ML IVC SCH (06:56)
[2019-09-07] MEDS: 0.9 % Sodium Chloride 1,000 ML IVC SCH ×3 (06:58→07:43)
[2019-09-07] MEDS: Acetaminophen IV 1,000 MG/100 ML INFUS..BTL IVPB SCH (07:43)
[2019-09-07] MEDS: amLODIPine 5 MG TABLET PO SCH (08:07)
[2019-09-07] MEDS: Gabapentin 300 MG CAPSULE PO SCH (08:07)
[2019-09-07] MEDS: Multivit/Ca/Min/Fe/FA 1 TAB TABLET PO SCH (08:07)
[2019-09-07] MEDS: Isosorbide MONOnitrate (24 HR) 60 MG TAB.ER.24H PO SCH (08:07)
[2019-09-07] MEDS: Aspirin Enteric Coated 81 MG Tablet PO SCH (08:07)
[2019-09-07] MEDS: hydroCHLOROthiazide 25 MG TABLET PO SCH (08:07)
[2019-09-07] MEDS: Ascorbic Acid 500 MG TABLET PO SCH (08:07)
[2019-09-07] MEDS: Insulin LISPRO 300 UNITS/3 ML VIAL SQ SCH ×2 (08:10→13:11)
[2019-09-07] MEDS: *HR* OxyCODONE Immed Rel 5 MG TABLET PO PRN (09:52)
[2019-09-07 11:46] VITALS: BP 128/68
== END 2019-09-07 13:40 | DRG 470 ==
LOC: 3NENU → SUATTDRO 14:18
PROVIDERS: ADMIT Internal Medicine; ATTEND Internal Medicine

== ENCOUNTER 2019-10-24 22:38 | Inpatient (IN) ==
[2019-10-24] MEDS ORDERED: Piperacillin/Tazobactam 3.375 GM in Water for inj. (sterile) 20 ML IVP ONE (22:49)
[2019-10-24] MEDS ORDERED: 0.9 % Sodium Chloride 1,000 ML IVC STA (22:49)
[2019-10-24 23:35] LABS: Prothrombin Time 11.7 Seconds (9.4-12.1)
[2019-10-24 23:38] LABS: Activated Partial Thrombo Time 28.8 Seconds (26.0-36.0)
[2019-10-24 23:41] LABS: Bilirubin,Urine Small (Negative); Blood,Urine Negative (Negative); Clarity,Urine Cloudy (Clear); Color,Urine Orange (Yellow); Glucose,Urine (UA) 100 mg/dL (Normal); Ketones,Urine Trace mg/dL (Negative); Leukocyte Esterase,Urine Trace (Negative); Nitrite,Urine Positive (Negative); Protein,Urine 100 mg/dL (Neg-Trace); Specific Gravity,Urine 1.029 (1.010-1.025); Urobilinogen,Urine Normal (Normal)
[2019-10-24 23:43] LABS: Bacteria,Urine None Seen per hpf (None-Few); RBC,Urine 0-3 per hpf (0-3); Squamous Epithelial Cell,Urine Many per lpf (None-Few)
[2019-10-24 23:49] LABS: VBG HCO3 22 mEq/L (21-27); VBG PCO2 36 mmHg (41-51); VBG PH 7.38 pH Units (7.32-7.42); VBG PO2 80 mmHg (25-50)
[2019-10-24 23:53] LABS: Hyaline Casts,Urine Few per lpf (None-Few); Mucus,Urine Few (Few)
[2019-10-24] MEDS ORDERED: 0.9 % Sodium Chloride 250 ML IVC ONE (23:59)
[2019-10-24] MEDS ORDERED: 0.9 % Sodium Chloride 1,000 ML IVC ONE (23:59)
[2019-10-25 00:11] LABS: Troponin I 0.04 ng/mL (< 0.04)
[2019-10-25 00:12] LABS: Alanine Aminotransferase 10 Units/L (7-52); Albumin 2.9 g/dL (3.5-5.7); Albumin/Globulin Ratio 0.7 (1.1-2.2); Alkaline Phosphatase 75 Units/L (34-104); Aspartate Amino Transferase 12 Units/L (13-39); BUN/Creatinine Ratio 30 (6-26); Bilirubin,Direct 0.3 mg/dL (0.0-0.2); Bilirubin,Indirect 0.7 mg/dL (0.0-1.0); Blood Urea Nitrogen 46 mg/dL (8-23); C-Reactive Protein > 300 mg/L (Less than 10); Calcium 9.1 mg/dL (8.6-10.3); Carbon Dioxide 19 mEq/L (23-29); Chloride 87 mEq/L (98-107); Globulin 3.9 g/dL (2.4-3.5); Glucose 577 mg/dL (70-105); Magnesium 1.5 mg/dL (1.6-2.6); Osmolality,Calculated 288 (280-300); Phosphorous 2.6 mg/dL (2.7-4.5); Potassium 3.9 mEq/L (3.5-5.1); Sodium 120 mEq/L (136-145); Total Protein 6.8 g/dL (6.4-8.9); eGFR For African Americans 40 (> 60); eGFR For Non-African Americans 33 (> 60)
[2019-10-25] MEDS ORDERED: Clindamycin 900 MG/50 ML 900 MG/50 ML IV.SOLN IVPB ONE (00:33)
[2019-10-25 00:45] LABS: Basophils % 0.3 %; Mean Corpuscular Volume 96.3 fL (83.0-100.0)
[2019-10-25 00:47] LABS: Eosinophils % 0.1 %; Hematocrit 33.6 % (35.3-44.9); Hemoglobin 10.8 g/dL (11.5-15.4); Immature Granulocytes % 2.6 % (0-4); Immature Platelets 23.3 % (1.1-6.1); Lymphocytes # 0.6 K/mcL (0.6-4.6); Lymphocytes % 8.7 %; Mean Corpuscular HGB Conc 32.1 g/dL (31.6-35.5); Mean Corpuscular Hemoglobin 30.9 pg (28.0-33.3); Monocytes # 0.7 K/mcL (0.0-1.3); Neutrophils # 5.4 K/mcL (1.6-8.9); Platelet Count 48 K/mcL (140-400); Red Blood Count 3.49 M/mcL (3.82-4.97); Red Cell Distribution Width 14.4 % (11.5-14.5); Segmented Neutrophils % 78.3 %; White Blood Count 6.9 K/mcL (4.3-11.1)
[2019-10-25 01:02] LABS: Platelet Estimate Decreased (Normal)
[2019-10-25 01:03] LABS: Burr Cells 1+ (Not Present)
[2019-10-25] MEDS ORDERED: Ondansetron 4 MG/2 ML VIAL IVP ONE (01:37)
[2019-10-25] MEDS ORDERED: *HR* HYDROmorphone (PF) 1 MG/ML SYRINGE IVP ONE (01:37)
[2019-10-25] MEDS ORDERED: *HR* Dextrose 50 % in Water (Syg) 50 ML SYRINGE IVP PRN ×3 (01:46→10:42)
[2019-10-25] MEDS ORDERED: Insulin Human Regular 100 UNIT in 0.9 % Sodium Chloride 100 ML IVC SCH (02:00)
[2019-10-25] MEDS ORDERED: 0.9 % Sodium Chloride 1,000 ML ONE (05:27)
[2019-10-25] MEDS ORDERED: Insulin Regular, Human 100 UNIT/ML IV PRN (06:45)
[2019-10-25 07:17] LABS: Basophils % 0.3 %
[2019-10-25 07:19] LABS: Hematocrit 32.8 % (35.3-44.9); Hemoglobin 10.8 g/dL (11.5-15.4); Immature Granulocytes % 4.9 % (0-4); Immature Platelets 21.9 % (1.1-6.1); Lymphocytes # 0.5 K/mcL (0.6-4.6); Lymphocytes % 8.8 %; Mean Corpuscular HGB Conc 32.9 g/dL (31.6-35.5); Mean Corpuscular Hemoglobin 30.9 pg (28.0-33.3); Monocytes # 0.3 K/mcL (0.0-1.3); Monocytes % 4.6 %; Red Blood Count 3.49 M/mcL (3.82-4.97); Red Cell Distribution Width 14.1 % (11.5-14.5); Segmented Neutrophils % 81.4 %; White Blood Count 6.1 K/mcL (4.3-11.1)
[2019-10-25 07:20] LABS: Platelet Count 52 K/mcL (140-400)
[2019-10-25 07:35] LABS: Calcium 8.6 mg/dL (8.6-10.3); Potassium 3.5 mEq/L (3.5-5.1)
[2019-10-25] MEDS ORDERED: D5% in 0.45% NACL 1,000 ML IVC PRN (08:21)
[2019-10-25] MEDS ORDERED: D5% in 0.45% NACL w KCl 20 MEQ/1,000 ML MLS IVC PRN (08:21)
[2019-10-25] MEDS: cefTRIAXone 1,000 MG in Water for inj. (sterile) 10 ML IVP SCH (09:26)
[2019-10-25 10:01] LABS: Calcium 8.7 mg/dL (8.6-10.3); Potassium 3.6 mEq/L (3.5-5.1)
[2019-10-25] MEDS ORDERED: Dextrose Gel 15 GM/37.5 ML TUBE PO PRN ×2 (10:42)
[2019-10-25] MEDS ORDERED: D5% in Water 1,000 ML IVC PRN (10:42)
[2019-10-25] MEDS ORDERED: Insulin DETEMIR 100 UNIT/ML X5UNITS SQ ONE (10:43)
[2019-10-25 11:22] LABS: Enterococcus by PCR Not Detected (Not Detect); Staphylococcus aureus by PCR DETECTED (Not Detect); Streptococcus agalactiae(B)PCR Not Detected (Not Detect); Streptococcus by PCR Not Detected (Not Detect); mecA Methicillin-Resist Gene DETECTED (Not Detect)
[2019-10-25 11:23] LABS: Acinetobacter baumannii by PCR Not Detected (Not Detect); Candida albicans by PCR Not Detected (Not Detect); Candida glabrata by PCR Not Detected (Not Detect); Candida krusei by PCR Not Detected (Not Detect); Candida parapsilosis by PCR Not Detected (Not Detect); Candida tropicalis by PCR Not Detected (Not Detect); Enterobacter cloacae Cmplx PCR Not Detected (Not Detect); Enterobacteriaceae by PCR Not Detected (Not Detect); Escherichia coli by PCR Not Detected (Not Detect); Klebsiella oxytoca by PCR Not Detected (Not Detect); Klebsiella pneumoniae by PCR Not Detected (Not Detect); Proteus by PCR Not Detected (Not Detect); Pseudomonas aeruginosa by PCR Not Detected (Not Detect); Serratia marcescens by PCR Not Detected (Not Detect); Streptococcus pneumoniae PCR Not Detected (Not Detect); Streptococcus pyogenes (A) PCR Not Detected (Not Detect)
[2019-10-25] MEDS ORDERED: Vancomycin 0 MG in 0.9 % Sodium Chloride 250 ML IVPB SCH (12:00)
[2019-10-25] MEDS: Insulin LISPRO 300 UNITS/3 ML VIAL SQ SCH ×2 (13:00→17:38)
[2019-10-25] MEDS ORDERED: *HR* FentaNYL (PF) 100 MCG/2 ML VIAL ONE (14:11)
[2019-10-25] MEDS ORDERED: Dexamethasone 4 MG/ML VIAL ONE (14:11)
[2019-10-25] MEDS ORDERED: Lidocaine -MPF 2% 2 ML VIAL ONE (14:11)
[2019-10-25] MEDS ORDERED: Ondansetron 4 MG/2 ML VIAL ONE (14:11)
[2019-10-25] MEDS ORDERED: *HR* Propofol 200 MG/20 ML VIAL IVP ONE (14:11)
[2019-10-25] MEDS ORDERED: *HR* Succinylcholine 200 MG/10 ML VIAL IVP ONE (15:01)
[2019-10-25] MEDS ORDERED: Acetaminophen IV 1,000 MG/100 ML INFUS..BTL ONE (15:09)
[2019-10-25] MEDS ORDERED: Ethanol\\Acetic Acid\\Na Ace\\Ben 1,000 ML IRRIG.SOLN IR ONE ×3 (15:17→15:52)
[2019-10-25] MEDS ORDERED: Doxycycline 100 MG in 0.9 % Sodium Chloride Mini Bag 100 ML IVPB SCH (18:00)
[2019-10-25] MEDS: Latanoprost 2.5 ML BOTTLE BOTH EYES SCH (19:35)
[2019-10-25] MEDS: 0.9 % Sodium Chloride 1,000 ML IVC SCH (19:36)
[2019-10-26 01:25] LABS: Mean Corpuscular Hemoglobin 30.5 pg (28.0-33.3); Mean Platelet Volume 13.8 fL (9.4-12.4); Red Cell Distribution Width 14.6 % (11.5-14.5)
[2019-10-26 01:27] LABS: Hematocrit 36.5 % (35.3-44.9); Hemoglobin 11.9 g/dL (11.5-15.4); Immature Platelets 15.5 % (1.1-6.1); Mean Corpuscular HGB Conc 32.6 g/dL (31.6-35.5); Mean Corpuscular Volume 93.6 fL (83.0-100.0); Nucleated Red Blood Cells 0.1 /100 WBC (0)
[2019-10-26 01:30] LABS: Platelet Count 71 K/mcL (140-400)
[2019-10-26 01:37] LABS: Calcium 8.9 mg/dL (8.6-10.3); Potassium 4.3 mEq/L (3.5-5.1)
[2019-10-26 01:52] LABS: Lymphocytes # 1.5 K/mcL (0.6-4.6); Neutrophils # 13.5 K/mcL (1.6-8.9)
[2019-10-26 01:53] LABS: Platelet Estimate Decreased (Normal)
[2019-10-26] MEDS: 0.9 % Sodium Chloride 1,000 ML IVC SCH ×4 (06:33→23:39)
[2019-10-26] MEDS: Insulin LISPRO 300 UNITS/3 ML VIAL SQ SCH ×5 (06:34→20:43)
[2019-10-26] MEDS: amLODIPine 5 MG TABLET PO SCH (07:59)
[2019-10-26] MEDS: Aspirin 81 MG TAB.CHEW PO SCH (07:59)
[2019-10-26] MEDS: Isosorbide MONOnitrate (24 HR) 60 MG TAB.ER.24H PO SCH (07:59)
[2019-10-26] MEDS: cefTRIAXone 1,000 MG in Water for inj. (sterile) 10 ML IVP SCH (07:59)
[2019-10-26] MEDS: Acetaminophen 325 MG TABLET PO PRN ×2 (15:08→21:06)
[2019-10-26] MEDS: *HR* OxyCODONE Oral Soln 5 MG/5 ML UD.LIQ PO PRN ×2 (16:55→23:39)
[2019-10-26] MEDS: *HR* Heparin 5,000 UNIT/ML VIAL SQ SCH (17:51)
[2019-10-26] MEDS: Latanoprost 2.5 ML BOTTLE BOTH EYES SCH (20:44)
[2019-10-26] MEDS ORDERED: Insulin DETEMIR 100 UNIT/ML X5UNITS SQ SCH (21:00)
[2019-10-27] MEDS: Acetaminophen 325 MG TABLET PO PRN (04:03)
[2019-10-27 04:31] LABS: Hemoglobin 11.4 g/dL (11.5-15.4); Immature Platelets 13.1 % (1.1-6.1); Mean Corpuscular HGB Conc 32.6 g/dL (31.6-35.5); Mean Corpuscular Hemoglobin 30.9 pg (28.0-33.3); Mean Corpuscular Volume 94.9 fL (83.0-100.0); Mean Platelet Volume 12.7 fL (9.4-12.4); Platelet Count 73 K/mcL (140-400); Red Blood Count 3.69 M/mcL (3.82-4.97); White Blood Count 13.6 K/mcL (4.3-11.1)
[2019-10-27 04:45] LABS: BUN/Creatinine Ratio 58 (6-26); Blood Urea Nitrogen 50 mg/dL (8-23); Calcium 8.7 mg/dL (8.6-10.3); Carbon Dioxide 17 mEq/L (23-29); Chloride 101 mEq/L (98-107); Glucose 289 mg/dL (70-105); Lymphocytes # 1.6 K/mcL (0.6-4.6); Monocytes # 0.8 K/mcL (0.0-1.3); Neutrophils # 10.6 K/mcL (1.6-8.9); Osmolality,Calculated 284 (280-300); Platelet Estimate Decreased (Normal); Potassium 4.3 mEq/L (3.5-5.1); Sodium 125 mEq/L (136-145); eGFR For African Americans > 60 (> 60); eGFR For Non-African Americans > 60 (> 60)
[2019-10-27] MEDS: *HR* Heparin 5,000 UNIT/ML VIAL SQ SCH ×2 (05:11→17:30)
[2019-10-27] MEDS: *HR* OxyCODONE Oral Soln 5 MG/5 ML UD.LIQ PO PRN ×2 (05:52→22:36)
[2019-10-27] MEDS: Insulin DETEMIR 100 UNIT/ML X5UNITS SQ SCH ×2 (09:23→22:24)
[2019-10-27] MEDS: cefTRIAXone 1,000 MG in Water for inj. (sterile) 10 ML IVP SCH (09:23)
[2019-10-27] MEDS: Insulin LISPRO 300 UNITS/3 ML VIAL SQ SCH ×4 (09:28→22:14)
[2019-10-27] MEDS: Isosorbide MONOnitrate (24 HR) 60 MG TAB.ER.24H PO SCH (09:29)
[2019-10-27] MEDS: Aspirin 81 MG TAB.CHEW PO SCH (09:29)
[2019-10-27] MEDS: amLODIPine 5 MG TABLET PO SCH (09:29)
[2019-10-27] MEDS ORDERED: Vancomycin 500 MG in 0.9 % Sodium Chloride Mini Bag 100 ML IVPB ONE (14:00)
[2019-10-27] MEDS: Latanoprost 2.5 ML BOTTLE BOTH EYES SCH (22:25)
[2019-10-28] MEDS: *HR* Heparin 5,000 UNIT/ML VIAL SQ SCH ×2 (05:05→17:03)
[2019-10-28] MEDS: *HR* OxyCODONE Oral Soln 5 MG/5 ML UD.LIQ PO PRN ×2 (06:11→12:56)
[2019-10-28] MEDS: Insulin LISPRO 300 UNITS/3 ML VIAL SQ SCH ×4 (07:58→22:04)
[2019-10-28] MEDS: Aspirin 81 MG TAB.CHEW PO SCH (09:54)
[2019-10-28] MEDS: amLODIPine 5 MG TABLET PO SCH (09:55)
[2019-10-28] MEDS: Isosorbide MONOnitrate (24 HR) 60 MG TAB.ER.24H PO SCH (09:55)
[2019-10-28] MEDS: Insulin DETEMIR 100 UNIT/ML X5UNITS SQ SCH ×2 (09:58→22:05)
[2019-10-28 15:03] LABS: Immature Platelets 12.6 % (1.1-6.1); Mean Corpuscular HGB Conc 33.3 g/dL (31.6-35.5); Mean Corpuscular Hemoglobin 30.7 pg (28.0-33.3); Mean Corpuscular Volume 92.2 fL (83.0-100.0); Red Blood Count 3.58 M/mcL (3.82-4.97); Red Cell Distribution Width 14.9 % (11.5-14.5); White Blood Count 18.8 K/mcL (4.3-11.1)
[2019-10-28 15:08] LABS: Platelet Count 75 K/mcL (140-400)
[2019-10-28 15:44] LABS: Hypersegmented Neutrophils Present (Not Present); Lymphocytes # 1.9 K/mcL (0.6-4.6); Monocytes # 0.8 K/mcL (0.0-1.3); Neutrophils # 16.2 K/mcL (1.6-8.9); Platelet Estimate Decreased (Normal)
[2019-10-28] MEDS: D5% in 0.9% NACL 1,000 ML IVC SCH (17:01)
[2019-10-28] MEDS: Latanoprost 2.5 ML BOTTLE BOTH EYES SCH (22:10)
[2019-10-29] MEDS: Acetaminophen 325 MG TABLET PO PRN ×3 (02:36→20:22)
[2019-10-29] MEDS: *HR* Heparin 5,000 UNIT/ML VIAL SQ SCH ×2 (05:52→16:12)
[2019-10-29 06:06] LABS: Red Cell Distribution Width 14.7 % (11.5-14.5)
[2019-10-29 06:08] LABS: Hematocrit 31.3 % (35.3-44.9); Hemoglobin 10.4 g/dL (11.5-15.4); Immature Platelets 11.1 % (1.1-6.1); Mean Corpuscular HGB Conc 33.2 g/dL (31.6-35.5); Mean Corpuscular Hemoglobin 30.3 pg (28.0-33.3); Mean Corpuscular Volume 91.3 fL (83.0-100.0); Mean Platelet Volume 12.8 fL (9.4-12.4); Platelet Count 65 K/mcL (140-400); Red Blood Count 3.43 M/mcL (3.82-4.97); White Blood Count 12.6 K/mcL (4.3-11.1)
[2019-10-29 06:19] LABS: BUN/Creatinine Ratio 45 (6-26); Blood Urea Nitrogen 24 mg/dL (8-23); Carbon Dioxide 20 mEq/L (23-29); Chloride 100 mEq/L (98-107); Glucose 230 mg/dL (70-105); Osmolality,Calculated 279 (280-300); Potassium 4.3 mEq/L (3.5-5.1); Sodium 129 mEq/L (136-145); eGFR For African Americans > 60 (> 60); eGFR For Non-African Americans > 60 (> 60)
[2019-10-29] MEDS: D5% in 0.9% NACL 1,000 ML IVC SCH ×2 (06:59→20:21)
[2019-10-29 08:01] LABS: Monocytes # 0.8 K/mcL (0.0-1.3); Neutrophils # 10.8 K/mcL (1.6-8.9); Platelet Estimate Decreased (Normal)
[2019-10-29 08:02] LABS: Hypochromasia Present (Not Present)
[2019-10-29] MEDS: Aspirin 81 MG TAB.CHEW PO SCH (08:03)
[2019-10-29] MEDS: amLODIPine 5 MG TABLET PO SCH (08:04)
[2019-10-29] MEDS: Isosorbide MONOnitrate (24 HR) 60 MG TAB.ER.24H PO SCH (08:05)
[2019-10-29] MEDS: Insulin LISPRO 300 UNITS/3 ML VIAL SQ SCH ×3 (08:09→16:13)
[2019-10-29] MEDS: Insulin DETEMIR 100 UNIT/ML X5UNITS SQ SCH ×2 (08:13→20:32)
[2019-10-29] MEDS ORDERED: *HR* Dextrose 50 % in Water (Syg) 50 ML SYRINGE IVP PRN (14:45)
[2019-10-29] MEDS ORDERED: D5% in Water 1,000 ML IVC PRN (14:45)
[2019-10-29] MEDS ORDERED: Dextrose Gel 15 GM/37.5 ML TUBE PO PRN ×2 (14:45)
[2019-10-29] MEDS: Latanoprost 2.5 ML BOTTLE BOTH EYES SCH (20:33)
[2019-10-30 04:48] LABS: Basophils % 0.8 %; Eosinophils % 0.7 %; Red Cell Distribution Width 14.6 % (11.5-14.5)
[2019-10-30 04:49] LABS: Basophils # 0.1 K/mcL (0.0-0.2); Eosinophils # 0.1 K/mcL (0.0-0.6); Hematocrit 32.1 % (35.3-44.9); Hemoglobin 10.3 g/dL (11.5-15.4); Immature Granulocytes % 8.8 % (0-4); Lymphocytes # 1.2 K/mcL (0.6-4.6); Lymphocytes % 9.3 %; Mean Corpuscular HGB Conc 32.1 g/dL (31.6-35.5); Mean Corpuscular Hemoglobin 30.5 pg (28.0-33.3); Mean Platelet Volume 12.5 fL (9.4-12.4); Monocytes # 0.9 K/mcL (0.0-1.3); Neutrophils # 9.4 K/mcL (1.6-8.9); Red Blood Count 3.38 M/mcL (3.82-4.97); Segmented Neutrophils % 73.4 %; White Blood Count 12.8 K/mcL (4.3-11.1)
[2019-10-30 05:11] LABS: % Iron Saturation 12 % (15-50); Iron 21 mcg/dL (50-170); Transferrin 128 mg/dL (203-362)
[2019-10-30 05:14] LABS: BUN/Creatinine Ratio 35 (6-26); Blood Urea Nitrogen 18 mg/dL (8-23); Calcium 8.1 mg/dL (8.6-10.3); Carbon Dioxide 20 mEq/L (23-29); Chloride 102 mEq/L (98-107); Glucose 157 mg/dL (70-105); Magnesium 1.6 mg/dL (1.6-2.6); Osmolality,Calculated 275 (280-300); Sodium 130 mEq/L (136-145); eGFR For African Americans > 60 (> 60); eGFR For Non-African Americans > 60 (> 60)
[2019-10-30 05:27] LABS: Ferritin 243 ng/mL (10-120)
[2019-10-30 05:30] LABS: Platelet Count 89 K/mcL (140-400)
[2019-10-30 05:33] LABS: Folate 7.2 ng/mL (3.0-16.0)
[2019-10-30 05:36] LABS: Vitamin B12 > 1500 pg/mL (250-1100)
[2019-10-30] MEDS: *HR* Acetaminophen w/Cod 300-30 mg 1 TAB TABLET PO PRN (06:08)
[2019-10-30] MEDS: *HR* Heparin 5,000 UNIT/ML VIAL SQ SCH ×2 (06:08→18:30)
[2019-10-30 08:46] LABS: Estimated Average Glucose 197 mg/dl
[2019-10-30] MEDS: Insulin LISPRO 300 UNITS/3 ML VIAL SQ SCH ×3 (09:12→18:23)
[2019-10-30] MEDS: Aspirin 81 MG TAB.CHEW PO SCH (10:12)
[2019-10-30] MEDS: Isosorbide MONOnitrate (24 HR) 60 MG TAB.ER.24H PO SCH (10:12)
[2019-10-30] MEDS: amLODIPine 5 MG TABLET PO SCH (10:12)
[2019-10-30] MEDS: D5% in 0.9% NACL 1,000 ML IVC SCH (10:15)
[2019-10-30] MEDS: Insulin DETEMIR 100 UNIT/ML X5UNITS SQ SCH (20:32)
[2019-10-30] MEDS: Latanoprost 2.5 ML BOTTLE BOTH EYES SCH (20:35)
[2019-10-31] MEDS: D5% in 0.9% NACL 1,000 ML IVC SCH ×2 (00:25→00:46)
[2019-10-31] MEDS ORDERED: Acetaminophen IV 1,000 MG/100 ML INFUS..BTL IVPB ONE (02:51)
[2019-10-31] MEDS: *HR* Heparin 5,000 UNIT/ML VIAL SQ SCH ×2 (04:09→16:30)
[2019-10-31 06:14] LABS: Hematocrit 31.3 % (35.3-44.9); Hemoglobin 10.2 g/dL (11.5-15.4); Mean Corpuscular HGB Conc 32.6 g/dL (31.6-35.5); Mean Corpuscular Hemoglobin 30.4 pg (28.0-33.3); Mean Corpuscular Volume 93.4 fL (83.0-100.0); Mean Platelet Volume 12.1 fL (9.4-12.4); Platelet Count 110 K/mcL (140-400); Red Blood Count 3.35 M/mcL (3.82-4.97); Red Cell Distribution Width 14.5 % (11.5-14.5); White Blood Count 12.6 K/mcL (4.3-11.1)
[2019-10-31 06:32] LABS: BUN/Creatinine Ratio 31 (6-26); Blood Urea Nitrogen 14 mg/dL (8-23); Calcium 7.9 mg/dL (8.6-10.3); Carbon Dioxide 20 mEq/L (23-29); Chloride 102 mEq/L (98-107); Glucose 130 mg/dL (70-105); Magnesium 1.6 mg/dL (1.6-2.6); Osmolality,Calculated 270 (280-300); Potassium 3.9 mEq/L (3.5-5.1); Sodium 129 mEq/L (136-145); eGFR For African Americans > 60 (> 60); eGFR For Non-African Americans > 60 (> 60)
[2019-10-31 06:56] LABS: Lymphocytes # 0.8 K/mcL (0.6-4.6); Monocytes # 1.3 K/mcL (0.0-1.3); Neutrophils # 10.6 K/mcL (1.6-8.9); Platelet Estimate Slight Decrease (Normal); Poikilocytosis 1+ (Not Present); Reactive Lymphocytes Present (Not Present)
[2019-10-31] MEDS: Aspirin 81 MG TAB.CHEW PO SCH (08:12)
[2019-10-31] MEDS: amLODIPine 5 MG TABLET PO SCH ×2 (08:12→17:37)
[2019-10-31] MEDS: Isosorbide MONOnitrate (24 HR) 60 MG TAB.ER.24H PO SCH (08:12)
[2019-10-31] MEDS ORDERED: Lidocaine Viscous Oral Soln 15 ML SOLUTION MM PRN (08:35)
[2019-10-31] MEDS ORDERED: *HR* FentaNYL (PF) 100 MCG/2 ML VIAL IVP PRN (08:35)
[2019-10-31] MEDS ORDERED: 0.9 % Sodium Chloride 500 ML IVC ONE (08:35)
[2019-10-31] MEDS: *HR* Midazolam HCl 5 MG/5 ML VIAL IVP PRN ×3 (09:05→09:20)
[2019-10-31] MEDS: Insulin LISPRO 300 UNITS/3 ML VIAL SQ SCH ×3 (10:34→17:37)
[2019-10-31] MEDS ORDERED: Lactulose Oral Soln 20 GM/30 ML UDC PO ONE (15:51)
[2019-10-31] MEDS: carvediloL 6.25 MG TABLET PO SCH (17:36)
[2019-10-31] MEDS: Latanoprost 2.5 ML BOTTLE BOTH EYES SCH (22:00)
[2019-10-31] MEDS: Insulin DETEMIR 100 UNIT/ML X5UNITS SQ SCH (22:29)
[2019-11-01] MEDS: *HR* Heparin 5,000 UNIT/ML VIAL SQ SCH ×2 (05:29→18:56)
[2019-11-01 06:41] LABS: Basophils % 0.3 %; Eosinophils # 0.2 K/mcL (0.0-0.6); Eosinophils % 1.3 %; Hematocrit 32.9 % (35.3-44.9); Hemoglobin 11.1 g/dL (11.5-15.4); Immature Granulocytes % 2.2 % (0-4); Lymphocytes # 1.3 K/mcL (0.6-4.6); Lymphocytes % 9.9 %; Mean Corpuscular HGB Conc 33.7 g/dL (31.6-35.5); Mean Corpuscular Hemoglobin 30.6 pg (28.0-33.3); Mean Corpuscular Volume 90.6 fL (83.0-100.0); Mean Platelet Volume 12.1 fL (9.4-12.4); Monocytes % 7.5 %; Neutrophils # 10.7 K/mcL (1.6-8.9); Platelet Count 138 K/mcL (140-400); Red Blood Count 3.63 M/mcL (3.82-4.97); Red Cell Distribution Width 14.5 % (11.5-14.5); Segmented Neutrophils % 78.8 %; White Blood Count 13.5 K/mcL (4.3-11.1)
[2019-11-01 07:04] LABS: BUN/Creatinine Ratio 26 (6-26); Blood Urea Nitrogen 12 mg/dL (8-23); Calcium 7.9 mg/dL (8.6-10.3); Carbon Dioxide 20 mEq/L (23-29); Chloride 101 mEq/L (98-107); Glucose 102 mg/dL (70-105); Magnesium 1.7 mg/dL (1.6-2.6); Osmolality,Calculated 270 (280-300); Potassium 3.6 mEq/L (3.5-5.1); Sodium 130 mEq/L (136-145); eGFR For African Americans > 60 (> 60); eGFR For Non-African Americans > 60 (> 60)
[2019-11-01 07:08] LABS: Albumin 2.4 g/dL (3.5-5.7); Albumin/Globulin Ratio 0.6 (1.1-2.2); Bilirubin,Direct 0.1 mg/dL (0.0-0.2); Bilirubin,Indirect 0.4 mg/dL (0.0-1.0); Bilirubin,Total 0.5 mg/dL (0.3-1.0); Globulin 4.2 g/dL (2.4-3.5); Total Protein 6.6 g/dL (6.4-8.9)
[2019-11-01] MEDS ORDERED: Lidocaine -MPF 1% 5 ML AMPUL INFILT ONE (09:09)
[2019-11-01] MEDS: Aspirin 81 MG TAB.CHEW PO SCH (09:13)
[2019-11-01] MEDS: carvediloL 6.25 MG TABLET PO SCH ×2 (09:13→16:04)
[2019-11-01] MEDS: Insulin LISPRO 300 UNITS/3 ML VIAL SQ SCH ×2 (09:14→12:32)
[2019-11-01] MEDS: Isosorbide MONOnitrate (24 HR) 60 MG TAB.ER.24H PO SCH (09:14)
[2019-11-01] MEDS ORDERED: Dextrose Gel 15 GM/37.5 ML TUBE PO PRN ×2 (16:56)
[2019-11-01] MEDS ORDERED: D5% in Water 1,000 ML IVC PRN (16:56)
[2019-11-01] MEDS: D5% in 0.9% NACL 1,000 ML IVC SCH (20:32)
[2019-11-01] MEDS: Latanoprost 2.5 ML BOTTLE BOTH EYES SCH (20:32)
[2019-11-01] MEDS: Piperacillin/Tazobactam 3.375 GM in 0.9 % Sodium Chloride Mini Bag 100 ML IVPB SCH (21:43)
[2019-11-02] MEDS: *HR* Acetaminophen w/Cod 300-30 mg 1 TAB TABLET PO PRN (00:26)
[2019-11-02 02:32] LABS: Basophils % 0.2 %; Eosinophils # 0.1 K/mcL (0.0-0.6); Eosinophils % 0.7 %; Hematocrit 28.8 % (35.3-44.9); Immature Granulocytes % 1.3 % (0-4); Lymphocytes # 1.3 K/mcL (0.6-4.6); Lymphocytes % 12.5 %; Mean Corpuscular HGB Conc 31.6 g/dL (31.6-35.5); Mean Corpuscular Hemoglobin 30.1 pg (28.0-33.3); Mean Corpuscular Volume 95.4 fL (83.0-100.0); Mean Platelet Volume 11.3 fL (9.4-12.4); Monocytes # 0.7 K/mcL (0.0-1.3); Monocytes % 6.9 %; Neutrophils # 7.9 K/mcL (1.6-8.9); Platelet Count 122 K/mcL (140-400); Red Blood Count 3.02 M/mcL (3.82-4.97); Red Cell Distribution Width 14.6 % (11.5-14.5); Segmented Neutrophils % 78.4 %
[2019-11-02 02:33] LABS: Hemoglobin 9.1 g/dL (11.5-15.4)
[2019-11-02 02:51] LABS: BUN/Creatinine Ratio 24 (6-26); Blood Urea Nitrogen 16 mg/dL (8-23); Calcium 7.5 mg/dL (8.6-10.3); Carbon Dioxide 20 mEq/L (23-29); Chloride 104 mEq/L (98-107); Glucose 116 mg/dL (70-105); Magnesium 1.7 mg/dL (1.6-2.6); Osmolality,Calculated 272 (280-300); Potassium 4.1 mEq/L (3.5-5.1); Sodium 130 mEq/L (136-145); eGFR For African Americans > 60 (> 60); eGFR For Non-African Americans > 60 (> 60)
[2019-11-02] MEDS: *HR* Heparin 5,000 UNIT/ML VIAL SQ SCH (05:38)
[2019-11-02] MEDS: Piperacillin/Tazobactam 3.375 GM in 0.9 % Sodium Chloride Mini Bag 100 ML IVPB SCH ×2 (06:36→14:25)
[2019-11-02] MEDS: Insulin LISPRO 300 UNITS/3 ML VIAL SQ SCH ×3 (07:53→17:20)
[2019-11-02] MEDS: carvediloL 6.25 MG TABLET PO SCH ×2 (07:55→17:14)
[2019-11-02] MEDS: amLODIPine 5 MG TABLET PO SCH (07:56)
[2019-11-02] MEDS: Isosorbide MONOnitrate (24 HR) 60 MG TAB.ER.24H PO SCH (07:56)
[2019-11-02] MEDS: Aspirin 81 MG TAB.CHEW PO SCH (07:56)
[2019-11-02 09:22] LABS: Hematocrit 32.8 % (35.3-44.9)
[2019-11-02 09:24] LABS: Hemoglobin 11.1 g/dL (11.5-15.4)
[2019-11-02] MEDS: D5% in 0.9% NACL 1,000 ML IVC SCH (11:48)
[2019-11-02] MEDS ORDERED: Lactulose Oral Soln 20 GM/30 ML UDC PO ONE (16:20)
[2019-11-02] MEDS: Bisacodyl 10 MG RECTAL SUPPOSITORY RC SCH (17:14)
[2019-11-02] MEDS ORDERED: Isovue-370 500 ML BOTTLE IVP ONE (17:34)
[2019-11-02 19:19] LABS: Hematocrit 27.9 % (35.3-44.9); Mean Corpuscular HGB Conc 32.6 g/dL (31.6-35.5); Mean Corpuscular Hemoglobin 30.1 pg (28.0-33.3); Mean Corpuscular Volume 92.4 fL (83.0-100.0); Mean Platelet Volume 11.8 fL (9.4-12.4); Platelet Count 150 K/mcL (140-400); Red Blood Count 3.02 M/mcL (3.82-4.97); Red Cell Distribution Width 14.5 % (11.5-14.5)
[2019-11-02 19:29] LABS: Hemoglobin 9.1 g/dL (11.5-15.4)
[2019-11-02 19:30] LABS: INR 1.3; Prothrombin Time 14.4 Seconds (9.4-12.1)
[2019-11-02] MEDS: Heparin 25,000 UNIT/250 ML D5W 25,000 UNIT/250 ML IV.SOLN IVC SCH (20:04)
[2019-11-03] MEDS: Piperacillin/Tazobactam 3.375 GM in 0.9 % Sodium Chloride Mini Bag 100 ML IVPB SCH ×2 (00:59→06:41)
[2019-11-03] MEDS: Latanoprost 2.5 ML BOTTLE BOTH EYES SCH ×2 (01:25→22:30)
[2019-11-03 02:11] LABS: Basophils % 0.3 %; Eosinophils # 0.1 K/mcL (0.0-0.6); Eosinophils % 1.1 %; Hematocrit 30.1 % (35.3-44.9); Hemoglobin 9.9 g/dL (11.5-15.4); Immature Granulocytes % 1.2 % (0-4); Lymphocytes # 1.4 K/mcL (0.6-4.6); Lymphocytes % 11.9 %; Mean Corpuscular HGB Conc 32.9 g/dL (31.6-35.5); Mean Corpuscular Hemoglobin 30.5 pg (28.0-33.3); Mean Corpuscular Volume 92.6 fL (83.0-100.0); Mean Platelet Volume 12.1 fL (9.4-12.4); Monocytes # 0.8 K/mcL (0.0-1.3); Monocytes % 6.7 %; Neutrophils # 9.5 K/mcL (1.6-8.9); Platelet Count 139 K/mcL (140-400); Red Blood Count 3.25 M/mcL (3.82-4.97); Red Cell Distribution Width 14.6 % (11.5-14.5); Segmented Neutrophils % 78.8 %
[2019-11-03 02:36] LABS: Calcium 7.4 mg/dL (8.6-10.3); Magnesium 1.6 mg/dL (1.6-2.6); Potassium 4.2 mEq/L (3.5-5.1)
[2019-11-03] MEDS: Insulin LISPRO 300 UNITS/3 ML VIAL SQ SCH ×3 (08:47→18:22)
[2019-11-03] MEDS: carvediloL 6.25 MG TABLET PO SCH ×2 (08:47→18:22)
[2019-11-03] MEDS: amLODIPine 5 MG TABLET PO SCH (08:47)
[2019-11-03] MEDS: Aspirin 81 MG TAB.CHEW PO SCH (08:47)
[2019-11-03] MEDS: Isosorbide MONOnitrate (24 HR) 60 MG TAB.ER.24H PO SCH (08:47)
[2019-11-03] MEDS: Bisacodyl 10 MG RECTAL SUPPOSITORY RC SCH (08:48)
[2019-11-03] MEDS ORDERED: Lactulose Oral Soln 20 GM/30 ML UDC PO ONE (13:08)
[2019-11-03] MEDS ORDERED: Isovue-300 150 ML INFUS..BTL ONE (15:21)
[2019-11-03] MEDS ORDERED: Heparin 1,000 UNITS/500 mL 500 ML ONE ×2 (15:23→16:44)
[2019-11-03] MEDS ORDERED: 0.9 % Sodium Chloride 1,000 ML ONE (16:09)
[2019-11-03] MEDS ORDERED: *HR* FentaNYL (PF) 100 MCG/2 ML VIAL ONE (16:43)
[2019-11-03] MEDS: D5% in 0.9% NACL 1,000 ML IVC SCH (19:49)
[2019-11-04 01:53] LABS: Basophils % 0.3 %; Eosinophils # 0.1 K/mcL (0.0-0.6); Eosinophils % 0.6 %; Hematocrit 29.5 % (35.3-44.9); Hemoglobin 9.5 g/dL (11.5-15.4); Immature Granulocytes % 0.9 % (0-4); Lymphocytes # 1.7 K/mcL (0.6-4.6); Lymphocytes % 13.1 %; Mean Corpuscular HGB Conc 32.2 g/dL (31.6-35.5); Mean Corpuscular Hemoglobin 30.4 pg (28.0-33.3); Mean Corpuscular Volume 94.2 fL (83.0-100.0); Mean Platelet Volume 11.9 fL (9.4-12.4); Monocytes # 0.8 K/mcL (0.0-1.3); Monocytes % 6.5 %; Platelet Count 170 K/mcL (140-400); Red Blood Count 3.13 M/mcL (3.82-4.97); Red Cell Distribution Width 14.5 % (11.5-14.5); Segmented Neutrophils % 78.6 %; White Blood Count 12.7 K/mcL (4.3-11.1)
[2019-11-04 03:19] LABS: Calcium 7.6 mg/dL (8.6-10.3); Magnesium 1.8 mg/dL (1.6-2.6); Potassium 4.2 mEq/L (3.5-5.1)
[2019-11-04] MEDS: amLODIPine 5 MG TABLET PO SCH (08:59)
[2019-11-04] MEDS: carvediloL 6.25 MG TABLET PO SCH ×2 (09:00→15:29)
[2019-11-04] MEDS: Bisacodyl 10 MG RECTAL SUPPOSITORY RC SCH (09:00)
[2019-11-04] MEDS: Isosorbide MONOnitrate (24 HR) 60 MG TAB.ER.24H PO SCH (09:00)
[2019-11-04] MEDS: Aspirin 81 MG TAB.CHEW PO SCH (09:00)
[2019-11-04] MEDS: Insulin LISPRO 300 UNITS/3 ML VIAL SQ SCH ×3 (09:36→15:29)
[2019-11-04] MEDS ORDERED: Lactulose Oral Soln 20 GM/30 ML UDC PO ONE (14:04)
[2019-11-04] MEDS: Sennosides/Docusate Sodium TABLET PO SCH ×2 (18:48→21:04)
[2019-11-04] MEDS: Latanoprost 2.5 ML BOTTLE BOTH EYES SCH (21:06)
[2019-11-05 05:24] LABS: Basophils % 0.4 %; Eosinophils # 0.1 K/mcL (0.0-0.6); Eosinophils % 0.5 %; Hematocrit 28.3 % (35.3-44.9); Hemoglobin 9.1 g/dL (11.5-15.4); Immature Granulocytes % 0.7 % (0-4); Lymphocytes # 1.7 K/mcL (0.6-4.6); Lymphocytes % 15.4 %; Mean Corpuscular HGB Conc 32.2 g/dL (31.6-35.5); Mean Corpuscular Hemoglobin 29.7 pg (28.0-33.3); Mean Corpuscular Volume 92.5 fL (83.0-100.0); Mean Platelet Volume 12.1 fL (9.4-12.4); Monocytes # 0.8 K/mcL (0.0-1.3); Monocytes % 7.9 %; Neutrophils # 8.1 K/mcL (1.6-8.9); Platelet Count 184 K/mcL (140-400); Red Blood Count 3.06 M/mcL (3.82-4.97); Red Cell Distribution Width 14.5 % (11.5-14.5); Segmented Neutrophils % 75.1 %; White Blood Count 10.7 K/mcL (4.3-11.1)
[2019-11-05 05:42] LABS: Calcium 7.4 mg/dL (8.6-10.3); Magnesium 1.8 mg/dL (1.6-2.6); Potassium 4.3 mEq/L (3.5-5.1)
[2019-11-05] MEDS: Aspirin 81 MG TAB.CHEW PO SCH (09:29)
[2019-11-05] MEDS: amLODIPine 5 MG TABLET PO SCH (09:29)
[2019-11-05] MEDS: Isosorbide MONOnitrate (24 HR) 60 MG TAB.ER.24H PO SCH (09:29)
[2019-11-05] MEDS: carvediloL 6.25 MG TABLET PO SCH ×2 (09:29→16:43)
[2019-11-05] MEDS: Insulin LISPRO 300 UNITS/3 ML VIAL SQ SCH ×3 (09:30→16:43)
[2019-11-05] MEDS ORDERED: Albumin 25% 25gram/100mL 25 GM/100 ML IV.SOLN IVPB ONE (10:13)
[2019-11-05] MEDS: Bisacodyl 10 MG RECTAL SUPPOSITORY RC SCH (10:25)
[2019-11-05] MEDS: Sennosides/Docusate Sodium TABLET PO SCH ×2 (10:26→21:51)
[2019-11-05] MEDS ORDERED: Furosemide 40 MG/4 ML VIAL IVP ONE (14:03)
[2019-11-05] MEDS ORDERED: Furosemide 40 MG/4 ML VIAL ONE (14:08)
[2019-11-05] MEDS ORDERED: Insulin DETEMIR 100 UNIT/ML X5UNITS SQ ONE (14:12)
[2019-11-05] MEDS: Latanoprost 2.5 ML BOTTLE BOTH EYES SCH (21:54)
[2019-11-06 04:02] LABS: Basophils # 0.1 K/mcL (0.0-0.2); Basophils % 0.5 %; Eosinophils # 0.1 K/mcL (0.0-0.6); Eosinophils % 0.8 %; Hematocrit 26.4 % (35.3-44.9); Hemoglobin 8.7 g/dL (11.5-15.4); Immature Granulocytes % 0.5 % (0-4); Lymphocytes # 1.7 K/mcL (0.6-4.6); Lymphocytes % 18.7 %; Mean Corpuscular Hemoglobin 30.3 pg (28.0-33.3); Mean Platelet Volume 11.8 fL (9.4-12.4); Monocytes # 0.7 K/mcL (0.0-1.3); Monocytes % 7.7 %; Neutrophils # 6.6 K/mcL (1.6-8.9); Platelet Count 170 K/mcL (140-400); Red Blood Count 2.87 M/mcL (3.82-4.97); Red Cell Distribution Width 14.5 % (11.5-14.5); Segmented Neutrophils % 71.8 %; White Blood Count 9.2 K/mcL (4.3-11.1)
[2019-11-06 04:18] LABS: Albumin 2.2 g/dL (3.5-5.7); Albumin/Globulin Ratio 0.6 (1.1-2.2); Bilirubin,Direct 0.1 mg/dL (0.0-0.2); Bilirubin,Indirect 0.3 mg/dL (0.0-1.0); Bilirubin,Total 0.4 mg/dL (0.3-1.0); Calcium 7.6 mg/dL (8.6-10.3); Globulin 3.4 g/dL (2.4-3.5); Magnesium 1.9 mg/dL (1.6-2.6); Potassium 4.5 mEq/L (3.5-5.1); Total Protein 5.6 g/dL (6.4-8.9)
[2019-11-06] MEDS ORDERED: Albumin 25% 25gram/100mL 25 GM/100 ML IV.SOLN IVPB ONE (08:01)
[2019-11-06] MEDS ORDERED: Furosemide 40 MG/4 ML VIAL IVP ONE (08:02)
[2019-11-06] MEDS: Insulin LISPRO 300 UNITS/3 ML VIAL SQ SCH ×3 (09:01→16:45)
[2019-11-06] MEDS: carvediloL 6.25 MG TABLET PO SCH ×2 (09:02→17:43)
[2019-11-06] MEDS: Isosorbide MONOnitrate (24 HR) 60 MG TAB.ER.24H PO SCH (09:02)
[2019-11-06] MEDS: Insulin DETEMIR 100 UNIT/ML X5UNITS SQ SCH (09:03)
[2019-11-06] MEDS: amLODIPine 5 MG TABLET PO SCH (09:03)
[2019-11-06] MEDS: Bisacodyl 10 MG RECTAL SUPPOSITORY RC SCH (09:03)
[2019-11-06] MEDS: Aspirin 81 MG TAB.CHEW PO SCH (09:03)
[2019-11-06] MEDS ORDERED: Aminoglycoside Consult 1 EACH MC ONE (09:46)
[2019-11-06] MEDS: Sennosides/Docusate Sodium TABLET PO SCH ×2 (12:44→19:57)
[2019-11-06] MEDS: DAPTOmycin 500 MG in 0.9 % Sodium Chloride 100 ML IVPB SCH (17:43)
[2019-11-06] MEDS: Latanoprost 2.5 ML BOTTLE BOTH EYES SCH (19:58)
[2019-11-06] MEDS: Heparin 25,000 UNIT/250 ML D5W 25,000 UNIT/250 ML IV.SOLN IVC SCH (21:57)
[2019-11-06] MEDS: D5% in 0.9% NACL 1,000 ML IVC SCH (21:57)
[2019-11-07 01:26] LABS: Calcium 7.6 mg/dL (8.6-10.3); Magnesium 1.8 mg/dL (1.6-2.6); Potassium 4.5 mEq/L (3.5-5.1)
[2019-11-07 01:29] LABS: Basophils % 0.3 %; Eosinophils # 0.1 K/mcL (0.0-0.6); Eosinophils % 0.5 %; Hematocrit 25.4 % (35.3-44.9); Hemoglobin 8.4 g/dL (11.5-15.4); Immature Granulocytes % 0.4 % (0-4); Lymphocytes # 1.5 K/mcL (0.6-4.6); Lymphocytes % 16.6 %; Mean Corpuscular HGB Conc 33.1 g/dL (31.6-35.5); Mean Corpuscular Hemoglobin 29.7 pg (28.0-33.3); Mean Corpuscular Volume 89.8 fL (83.0-100.0); Mean Platelet Volume 11.8 fL (9.4-12.4); Monocytes # 0.7 K/mcL (0.0-1.3); Monocytes % 7.3 %; Neutrophils # 6.9 K/mcL (1.6-8.9); Platelet Count 175 K/mcL (140-400); Red Blood Count 2.83 M/mcL (3.82-4.97); Red Cell Distribution Width 14.3 % (11.5-14.5); Segmented Neutrophils % 74.9 %; White Blood Count 9.2 K/mcL (4.3-11.1)
[2019-11-07] MEDS: carvediloL 6.25 MG TABLET PO SCH ×2 (08:18→17:33)
[2019-11-07] MEDS: Isosorbide MONOnitrate (24 HR) 60 MG TAB.ER.24H PO SCH (08:18)
[2019-11-07] MEDS: Aspirin 81 MG TAB.CHEW PO SCH (08:19)
[2019-11-07] MEDS: Insulin LISPRO 300 UNITS/3 ML VIAL SQ SCH ×3 (08:19→17:33)
[2019-11-07] MEDS: Insulin DETEMIR 100 UNIT/ML X5UNITS SQ SCH (08:19)
[2019-11-07] MEDS: amLODIPine 5 MG TABLET PO SCH (08:19)
[2019-11-07] MEDS: Sennosides/Docusate Sodium TABLET PO SCH ×2 (08:19→21:04)
[2019-11-07] MEDS ORDERED: Morphine Sulfate 2 MG/ML SYRINGE IVP ONE (12:29)
[2019-11-07] MEDS: Latanoprost 2.5 ML BOTTLE BOTH EYES SCH (21:04)
[2019-11-07 23:35] LABS: HCV Quant Log 6.97 log IU/mL
[2019-11-08 05:29] LABS: Basophils % 0.4 %; Eosinophils # 0.1 K/mcL (0.0-0.6); Eosinophils % 0.6 %; Hematocrit 26.1 % (35.3-44.9); Hemoglobin 8.7 g/dL (11.5-15.4); Immature Granulocytes % 0.4 % (0-4); Lymphocytes # 1.7 K/mcL (0.6-4.6); Lymphocytes % 18.6 %; Mean Corpuscular HGB Conc 33.3 g/dL (31.6-35.5); Mean Corpuscular Hemoglobin 30.7 pg (28.0-33.3); Mean Corpuscular Volume 92.2 fL (83.0-100.0); Mean Platelet Volume 11.8 fL (9.4-12.4); Monocytes # 0.7 K/mcL (0.0-1.3); Monocytes % 7.8 %; Neutrophils # 6.5 K/mcL (1.6-8.9); Platelet Count 175 K/mcL (140-400); Red Blood Count 2.83 M/mcL (3.82-4.97); Red Cell Distribution Width 14.7 % (11.5-14.5); Segmented Neutrophils % 72.2 %
[2019-11-08 05:48] LABS: Calcium 7.7 mg/dL (8.6-10.3); Magnesium 1.8 mg/dL (1.6-2.6); Potassium 4.8 mEq/L (3.5-5.1)
[2019-11-08 06:57] LABS: HCV Quant Interpretation DETECTED (Not Detected)
[2019-11-08] MEDS: Insulin LISPRO 300 UNITS/3 ML VIAL SQ SCH ×4 (08:24→21:35)
[2019-11-08] MEDS: Sennosides/Docusate Sodium TABLET PO SCH ×2 (08:33→17:17)
[2019-11-08] MEDS: Isosorbide MONOnitrate (24 HR) 60 MG TAB.ER.24H PO SCH (08:33)
[2019-11-08] MEDS: Aspirin 81 MG TAB.CHEW PO SCH (08:33)
[2019-11-08] MEDS: carvediloL 6.25 MG TABLET PO SCH ×2 (08:33→17:31)
[2019-11-08] MEDS: amLODIPine 5 MG TABLET PO SCH (08:34)
[2019-11-08] MEDS: DAPTOmycin 500 MG in 0.9 % Sodium Chloride 100 ML IVPB SCH (17:31)
[2019-11-08] MEDS: Latanoprost 2.5 ML BOTTLE BOTH EYES SCH (21:37)
[2019-11-08] MEDS ORDERED: *HR* HYDROcodone/Acet 5/325 mg TABLET PO ONE (23:46)
[2019-11-09 00:17] LABS: Bilirubin,Urine Negative (Negative); Blood,Urine Negative (Negative); Clarity,Urine Cloudy (Clear); Color,Urine Yellow (Yellow); Glucose,Urine (UA) Normal (Normal); Ketones,Urine Negative (Negative); Leukocyte Esterase,Urine Negative (Negative); Nitrite,Urine Negative (Negative); PH,Urine 5.5 pH Units (5.0-8.0); Protein,Urine 30 mg/dL (Neg-Trace); Specific Gravity,Urine 1.017 (1.010-1.025); Urobilinogen,Urine Normal (Normal)
[2019-11-09 00:19] LABS: Bacteria,Urine None Seen per hpf (None-Few)
[2019-11-09 00:24] LABS: Sodium, Urine 38.6 mEq/L
[2019-11-09 00:33] LABS: Protein/Creatinine Ratio,Urine 0.67 mg/mg (0.00-0.20)
[2019-11-09 00:44] LABS: Hyaline Casts,Urine Few per lpf (None-Few); Squamous Epithelial Cell,Urine Moderate per lpf (None-Few)
[2019-11-09 04:15] LABS: Basophils % 0.3 %; Eosinophils % 0.5 %; Hematocrit 24.1 % (35.3-44.9); Hemoglobin 7.9 g/dL (11.5-15.4); Immature Granulocytes % 0.2 % (0-4); Lymphocytes # 1.3 K/mcL (0.6-4.6); Lymphocytes % 19.3 %; Mean Corpuscular HGB Conc 32.8 g/dL (31.6-35.5); Mean Corpuscular Hemoglobin 29.7 pg (28.0-33.3); Mean Corpuscular Volume 90.6 fL (83.0-100.0); Mean Platelet Volume 11.9 fL (9.4-12.4); Monocytes # 0.6 K/mcL (0.0-1.3); Monocytes % 9.3 %; Neutrophils # 4.6 K/mcL (1.6-8.9); Platelet Count 151 K/mcL (140-400); Red Blood Count 2.66 M/mcL (3.82-4.97); Red Cell Distribution Width 14.7 % (11.5-14.5); Segmented Neutrophils % 70.4 %; White Blood Count 6.6 K/mcL (4.3-11.1)
[2019-11-09 04:36] LABS: Calcium 7.8 mg/dL (8.6-10.3); Potassium 4.7 mEq/L (3.5-5.1)
[2019-11-09] MEDS: amLODIPine 5 MG TABLET PO SCH (08:15)
[2019-11-09] MEDS: Aspirin 81 MG TAB.CHEW PO SCH (08:15)
[2019-11-09] MEDS: Isosorbide MONOnitrate (24 HR) 60 MG TAB.ER.24H PO SCH (08:15)
[2019-11-09] MEDS: carvediloL 6.25 MG TABLET PO SCH ×2 (08:15→17:00)
[2019-11-09] MEDS: Sennosides/Docusate Sodium TABLET PO SCH ×2 (08:16→21:07)
[2019-11-09] MEDS: Insulin LISPRO 300 UNITS/3 ML VIAL SQ SCH ×4 (08:17→21:06)
[2019-11-09] MEDS: Latanoprost 2.5 ML BOTTLE BOTH EYES SCH (21:07)
[2019-11-10 05:39] LABS: Hemoglobin 7.4 g/dL (11.5-15.4); Mean Corpuscular HGB Conc 32.2 g/dL (31.6-35.5); Mean Corpuscular Hemoglobin 30.6 pg (28.0-33.3); Mean Platelet Volume 11.8 fL (9.4-12.4); Platelet Count 130 K/mcL (140-400); Red Blood Count 2.42 M/mcL (3.82-4.97); Red Cell Distribution Width 14.6 % (11.5-14.5); White Blood Count 4.8 K/mcL (4.3-11.1)
[2019-11-10 05:53] LABS: Calcium 7.5 mg/dL (8.6-10.3); Potassium 5.2 mEq/L (3.5-5.1)
[2019-11-10] MEDS: amLODIPine 5 MG TABLET PO SCH (10:11)
[2019-11-10] MEDS: Sennosides/Docusate Sodium TABLET PO SCH ×2 (10:11→21:11)
[2019-11-10] MEDS: Isosorbide MONOnitrate (24 HR) 60 MG TAB.ER.24H PO SCH (10:11)
[2019-11-10] MEDS: carvediloL 6.25 MG TABLET PO SCH ×2 (10:12→17:06)
[2019-11-10] MEDS: Aspirin 81 MG TAB.CHEW PO SCH (10:12)
[2019-11-10] MEDS: Insulin DETEMIR 100 UNIT/ML X5UNITS SQ SCH ×2 (10:13→21:11)
[2019-11-10] MEDS: Insulin LISPRO 300 UNITS/3 ML VIAL SQ SCH ×7 (10:21→21:08)
[2019-11-10 12:42] LABS: % Iron Saturation 11 % (15-50); Iron 20 mcg/dL (50-170); Transferrin 128 mg/dL (203-362)
[2019-11-10 13:05] LABS: Folate 5.1 ng/mL (3.0-16.0)
[2019-11-10] MEDS: Ferrous Sulfate Oral Soln 300 MG/5 ML UDC PO SCH (17:06)
[2019-11-10] MEDS: DAPTOmycin 500 MG in 0.9 % Sodium Chloride 100 ML IVPB SCH (17:08)
[2019-11-10 17:47] LABS: Hematocrit 22.9 % (35.3-44.9); Hemoglobin 7.6 g/dL (11.5-15.4)
[2019-11-10] MEDS: Latanoprost 2.5 ML BOTTLE BOTH EYES SCH (21:11)
[2019-11-10 21:14] LABS: Hematocrit 21.8 % (35.3-44.9); Hemoglobin 7.4 g/dL (11.5-15.4)
[2019-11-11 04:41] LABS: Basophils % 0.4 %; Eosinophils # 0.1 K/mcL (0.0-0.6); Eosinophils % 1.3 %; Hematocrit 22.3 % (35.3-44.9); Hemoglobin 7.2 g/dL (11.5-15.4); Immature Granulocytes % 0.4 % (0-4); Immature Platelets 4.1 % (1.1-6.1); Lymphocytes # 1.2 K/mcL (0.6-4.6); Lymphocytes % 21.5 %; Mean Corpuscular HGB Conc 32.3 g/dL (31.6-35.5); Mean Corpuscular Hemoglobin 30.8 pg (28.0-33.3); Mean Corpuscular Volume 95.3 fL (83.0-100.0); Mean Platelet Volume 11.9 fL (9.4-12.4); Monocytes # 0.6 K/mcL (0.0-1.3); Monocytes % 10.3 %; Neutrophils # 3.7 K/mcL (1.6-8.9); Platelet Count 126 K/mcL (140-400); Red Blood Count 2.34 M/mcL (3.82-4.97); Segmented Neutrophils % 66.1 %; White Blood Count 5.5 K/mcL (4.3-11.1)
[2019-11-11 05:12] LABS: Calcium 7.5 mg/dL (8.6-10.3); Potassium 5.3 mEq/L (3.5-5.1)
[2019-11-11] MEDS: Ferrous Sulfate Oral Soln 300 MG/5 ML UDC PO SCH (08:36)
[2019-11-11] MEDS: amLODIPine 5 MG TABLET PO SCH (08:36)
[2019-11-11] MEDS: Isosorbide MONOnitrate (24 HR) 60 MG TAB.ER.24H PO SCH (08:36)
[2019-11-11] MEDS: carvediloL 6.25 MG TABLET PO SCH ×2 (08:36→16:30)
[2019-11-11] MEDS: Aspirin 81 MG TAB.CHEW PO SCH (08:36)
[2019-11-11] MEDS: Insulin DETEMIR 100 UNIT/ML X5UNITS SQ SCH ×2 (08:38→21:44)
[2019-11-11] MEDS: Insulin LISPRO 300 UNITS/3 ML VIAL SQ SCH ×7 (08:38→21:44)
[2019-11-11] MEDS: Sennosides/Docusate Sodium TABLET PO SCH ×2 (08:39→21:43)
[2019-11-11 09:08] LABS: Hematocrit 25.2 % (35.3-44.9); Hemoglobin 8.3 g/dL (11.5-15.4)
[2019-11-11 12:58] LABS: Hematocrit 22.8 % (35.3-44.9); Hemoglobin 7.6 g/dL (11.5-15.4)
[2019-11-11 19:37] LABS: Hematocrit 23.4 % (35.3-44.9); Hemoglobin 7.8 g/dL (11.5-15.4)
[2019-11-11] MEDS: Latanoprost 2.5 ML BOTTLE BOTH EYES SCH (21:44)
[2019-11-12 01:15] LABS: Hematocrit 22.9 % (35.3-44.9); Hemoglobin 7.6 g/dL (11.5-15.4)
[2019-11-12 05:40] LABS: Basophils % 0.2 %; Eosinophils # 0.1 K/mcL (0.0-0.6); Eosinophils % 1.4 %; Hematocrit 24.1 % (35.3-44.9); Hemoglobin 7.9 g/dL (11.5-15.4); Immature Granulocytes % 0.4 % (0-4); Lymphocytes # 1.1 K/mcL (0.6-4.6); Lymphocytes % 22.3 %; Mean Corpuscular HGB Conc 32.8 g/dL (31.6-35.5); Mean Corpuscular Hemoglobin 30.2 pg (28.0-33.3); Mean Platelet Volume 11.1 fL (9.4-12.4); Monocytes # 0.5 K/mcL (0.0-1.3); Monocytes % 10.5 %; Neutrophils # 3.2 K/mcL (1.6-8.9); Platelet Count 126 K/mcL (140-400); Red Blood Count 2.62 M/mcL (3.82-4.97); Segmented Neutrophils % 65.2 %; White Blood Count 4.9 K/mcL (4.3-11.1)
[2019-11-12 05:58] LABS: Potassium 5.3 mEq/L (3.5-5.1)
[2019-11-12] MEDS: Isosorbide MONOnitrate (24 HR) 60 MG TAB.ER.24H PO SCH (08:18)
[2019-11-12] MEDS: amLODIPine 5 MG TABLET PO SCH (08:18)
[2019-11-12] MEDS: Aspirin 81 MG TAB.CHEW PO SCH (08:18)
[2019-11-12] MEDS: carvediloL 6.25 MG TABLET PO SCH ×2 (08:18→17:10)
[2019-11-12] MEDS: Sennosides/Docusate Sodium TABLET PO SCH ×2 (08:18→22:38)
[2019-11-12] MEDS: Ferrous Sulfate Oral Soln 300 MG/5 ML UDC PO SCH (08:18)
[2019-11-12] MEDS: Insulin LISPRO 300 UNITS/3 ML VIAL SQ SCH ×7 (08:19→22:38)
[2019-11-12] MEDS: Insulin DETEMIR 100 UNIT/ML X5UNITS SQ SCH ×2 (08:21→22:38)
[2019-11-12] MEDS: DAPTOmycin 500 MG in 0.9 % Sodium Chloride 100 ML IVPB SCH (22:41)
[2019-11-12] MEDS: Latanoprost 2.5 ML BOTTLE BOTH EYES SCH (22:41)
[2019-11-13] MEDS: *HR* Dextrose 50 % in Water (Syg) 50 ML SYRINGE IVP PRN (06:28)
[2019-11-13 07:15] LABS: Calcium 7.9 mg/dL (8.6-10.3); Potassium 5.4 mEq/L (3.5-5.1)
[2019-11-13] MEDS: Insulin LISPRO 300 UNITS/3 ML VIAL SQ SCH ×4 (09:34→20:25)
[2019-11-13] MEDS: carvediloL 6.25 MG TABLET PO SCH ×2 (09:58→17:41)
[2019-11-13] MEDS: amLODIPine 5 MG TABLET PO SCH (09:58)
[2019-11-13] MEDS: Isosorbide MONOnitrate (24 HR) 60 MG TAB.ER.24H PO SCH (09:58)
[2019-11-13] MEDS: Aspirin 81 MG TAB.CHEW PO SCH (09:59)
[2019-11-13] MEDS: Ferrous Sulfate Oral Soln 300 MG/5 ML UDC PO SCH (09:59)
[2019-11-13] MEDS: Sennosides/Docusate Sodium TABLET PO SCH ×2 (10:00→20:21)
[2019-11-13] MEDS: Latanoprost 2.5 ML BOTTLE BOTH EYES SCH (20:28)
[2019-11-13] MEDS ORDERED: Insulin DETEMIR 100 UNIT/ML X5UNITS SQ SCH (21:00)
[2019-11-14 04:11] LABS: Potassium 5.3 mEq/L (3.5-5.1)
[2019-11-14] MEDS: *HR* Dextrose 50 % in Water (Syg) 50 ML SYRINGE IVP PRN (05:07)
[2019-11-14] MEDS: Insulin LISPRO 300 UNITS/3 ML VIAL SQ SCH (09:06)
[2019-11-14] MEDS: carvediloL 6.25 MG TABLET PO SCH (09:16)
[2019-11-14] MEDS: Aspirin 81 MG TAB.CHEW PO SCH (09:16)
[2019-11-14] MEDS: Isosorbide MONOnitrate (24 HR) 60 MG TAB.ER.24H PO SCH (09:16)
[2019-11-14] MEDS: Ferrous Sulfate Oral Soln 300 MG/5 ML UDC PO SCH (09:16)
[2019-11-14] MEDS: amLODIPine 5 MG TABLET PO SCH (09:16)
[2019-11-14] MEDS: Sennosides/Docusate Sodium TABLET PO SCH (09:17)
[2019-11-14 11:41] VITALS: BP 100/53
== END 2019-11-14 12:47 | DRG 480 ==
LOC: EMEROOARM 22:38 → 2NNU 22:38 → SUATTDRO 10-25 04:21 → 3ANU 10-27 16:13 → 3NENU 10-31 19:53 → 2NENU 11-03 17:31
PROVIDERS: ADMIT Internal Medicine; ATTEND Internal Medicine

== ENCOUNTER 2019-11-15 01:03 | Inpatient (IN) ==
[2019-11-15] MEDS ORDERED: Ondansetron 4 MG/2 ML VIAL IVP PRN (05:38)
[2019-11-15] MEDS ORDERED: Naloxone 0.4 MG/ML INJ IVP PRN (05:38)
[2019-11-15] MEDS: MethylPREDNISolone 40 MG/ML VIAL IVP SCH ×4 (05:55→23:17)
[2019-11-15 06:18] LABS: Bilirubin,Urine Negative (Negative); Blood,Urine Negative (Negative); Clarity,Urine Clear (Clear); Color,Urine Yellow (Yellow); Glucose,Urine (UA) Normal (Normal); Ketones,Urine Negative (Negative); Leukocyte Esterase,Urine Negative (Negative); Nitrite,Urine Negative (Negative); PH,Urine 5.5 pH Units (5.0-8.0); Protein,Urine Negative (Neg-Trace); Specific Gravity,Urine 1.009 (1.010-1.025); Urobilinogen,Urine Normal (Normal)
[2019-11-15 06:19] LABS: Basophils # 0.1 K/mcL (0.0-0.2); Basophils % 0.9 %; Eosinophils # 0.1 K/mcL (0.0-0.6); Eosinophils % 1.7 %; Hematocrit 23.7 % (35.3-44.9); Hemoglobin 7.8 g/dL (11.5-15.4); Immature Granulocytes % 0.4 % (0-4); Lymphocytes # 1.1 K/mcL (0.6-4.6); Lymphocytes % 15.2 %; Mean Corpuscular HGB Conc 32.9 g/dL (31.6-35.5); Mean Corpuscular Hemoglobin 30.2 pg (28.0-33.3); Mean Corpuscular Volume 91.9 fL (83.0-100.0); Mean Platelet Volume 11.5 fL (9.4-12.4); Monocytes # 0.6 K/mcL (0.0-1.3); Monocytes % 8.8 %; Neutrophils # 5.1 K/mcL (1.6-8.9); Platelet Count 121 K/mcL (140-400); Red Blood Count 2.58 M/mcL (3.82-4.97); Red Cell Distribution Width 15.6 % (11.5-14.5)
[2019-11-15] MEDS ORDERED: D5% in Water 1,000 ML IVC PRN (06:22)
[2019-11-15] MEDS ORDERED: *HR* Dextrose 50 % in Water (Syg) 50 ML SYRINGE IVP PRN (06:22)
[2019-11-15] MEDS ORDERED: Dextrose Gel 15 GM/37.5 ML TUBE PO PRN ×2 (06:22)
[2019-11-15 06:23] LABS: INR 1.1
[2019-11-15 06:25] LABS: Activated Partial Thrombo Time 32.5 Seconds (26.0-36.0)
[2019-11-15 06:47] LABS: Albumin 2.5 g/dL (3.5-5.7); Albumin/Globulin Ratio 0.7 (1.1-2.2); Bilirubin,Total 0.5 mg/dL (0.3-1.0); Calcium 8.6 mg/dL (8.6-10.3); Globulin 3.7 g/dL (2.4-3.5); Magnesium 1.8 mg/dL (1.6-2.6); Phosphorous 4.1 mg/dL (2.7-4.5); Potassium 4.9 mEq/L (3.5-5.1); Total Protein 6.2 g/dL (6.4-8.9)
[2019-11-15 06:50] LABS: Troponin I 0.25 ng/mL (< 0.04)
[2019-11-15] MEDS: Ipratropium/Albuterol Neb 3 ML IH SCH ×5 (07:17→23:47)
[2019-11-15] MEDS: Insulin DETEMIR 100 UNIT/ML X5UNITS SQ SCH ×2 (07:17→20:31)
[2019-11-15] MEDS ORDERED: Perflutren Lipid Microsphere 1.3 ML in 0.9 % Sodium Chloride 8.7 ML IVP ONE (09:16)
[2019-11-15] MEDS: Insulin LISPRO 300 UNITS/3 ML VIAL SQ SCH ×3 (10:00→16:36)
[2019-11-15] MEDS: DAPTOmycin 500 MG in 0.9 % Sodium Chloride 100 ML IVPB SCH (10:00)
[2019-11-15] MEDS: *HR* Heparin 5,000 UNIT/ML VIAL SQ SCH ×3 (10:01→23:17)
[2019-11-15] MEDS ORDERED: Racepinephrine Neb 0.5 ML VIAL IH ONE (10:21)
[2019-11-15] MEDS ORDERED: Famotidine 20 MG/2 ML VIAL IVP ONE (10:22)
[2019-11-15] MEDS: amLODIPine 5 MG TABLET PO SCH (16:35)
[2019-11-15] MEDS: Desitin (Zinc Oxide) 56 GM TUBE TP SCH ×2 (16:36→20:31)
[2019-11-15] MEDS ORDERED: carvediloL 6.25 MG TABLET PO SCH (17:00)
[2019-11-15] MEDS: Ketoconazole 2% CRM 15 GM TUBE TP SCH (20:31)
[2019-11-15] MEDS: Furosemide 240 MG in 0.9 % Sodium Chloride 96 ML IVC SCH (20:31)
[2019-11-16] MEDS: Ipratropium/Albuterol Neb 3 ML IH SCH ×6 (03:39→20:14)
[2019-11-16 04:09] LABS: Basophils % 0.2 %; Hematocrit 23.5 % (35.3-44.9); Hemoglobin 7.9 g/dL (11.5-15.4); Immature Granulocytes % 0.5 % (0-4); Immature Platelets 4.4 % (1.1-6.1); Lymphocytes # 0.8 K/mcL (0.6-4.6); Lymphocytes % 12.5 %; Mean Corpuscular HGB Conc 33.6 g/dL (31.6-35.5); Mean Corpuscular Hemoglobin 30.5 pg (28.0-33.3); Mean Corpuscular Volume 90.7 fL (83.0-100.0); Mean Platelet Volume 11.4 fL (9.4-12.4); Monocytes # 0.1 K/mcL (0.0-1.3); Monocytes % 1.9 %; Neutrophils # 5.3 K/mcL (1.6-8.9); Platelet Count 125 K/mcL (140-400); Red Blood Count 2.59 M/mcL (3.82-4.97); Red Cell Distribution Width 15.4 % (11.5-14.5); Segmented Neutrophils % 84.9 %; White Blood Count 6.3 K/mcL (4.3-11.1)
[2019-11-16 04:31] LABS: Calcium 8.3 mg/dL (8.6-10.3)
[2019-11-16] MEDS: Famotidine 20 MG/2 ML VIAL IVP SCH ×2 (05:45→17:07)
[2019-11-16] MEDS: MethylPREDNISolone 40 MG/ML VIAL IVP SCH ×3 (05:46→17:07)
[2019-11-16] MEDS: Insulin LISPRO 300 UNITS/3 ML VIAL SQ SCH ×3 (07:33→17:06)
[2019-11-16] MEDS: *HR* Heparin 5,000 UNIT/ML VIAL SQ SCH ×3 (07:43→15:45)
[2019-11-16] MEDS: amLODIPine 5 MG TABLET PO SCH (07:44)
[2019-11-16] MEDS: Ketoconazole 2% CRM 15 GM TUBE TP SCH ×2 (07:45→21:30)
[2019-11-16] MEDS: Desitin (Zinc Oxide) 56 GM TUBE TP SCH ×2 (08:49→21:30)
[2019-11-16] MEDS: Furosemide 240 MG in 0.9 % Sodium Chloride 96 ML IVC SCH (19:52)
[2019-11-16] MEDS: DiphenhydraMINE CREAM 28.4 GM TUBE TP PRN (21:31)
[2019-11-16] MEDS: Insulin DETEMIR 100 UNIT/ML X5UNITS SQ SCH (21:34)
[2019-11-17] MEDS: MethylPREDNISolone 40 MG/ML VIAL IVP SCH ×4 (00:25→16:23)
[2019-11-17] MEDS: Ipratropium/Albuterol Neb 3 ML IH SCH ×7 (00:31→23:42)
[2019-11-17 05:26] LABS: Hematocrit 24.9 % (35.3-44.9); Hemoglobin 8.4 g/dL (11.5-15.4); Mean Corpuscular HGB Conc 33.7 g/dL (31.6-35.5); Mean Corpuscular Hemoglobin 30.2 pg (28.0-33.3); Mean Corpuscular Volume 89.6 fL (83.0-100.0); Mean Platelet Volume 11.2 fL (9.4-12.4); Platelet Count 168 K/mcL (140-400); Red Blood Count 2.78 M/mcL (3.82-4.97); Red Cell Distribution Width 15.6 % (11.5-14.5)
[2019-11-17 05:42] LABS: Potassium 3.4 mEq/L (3.5-5.1)
[2019-11-17] MEDS: Famotidine 20 MG/2 ML VIAL IVP SCH ×2 (06:48→16:23)
[2019-11-17] MEDS: Insulin LISPRO 300 UNITS/3 ML VIAL SQ SCH ×3 (08:53→18:11)
[2019-11-17] MEDS: DAPTOmycin 500 MG in 0.9 % Sodium Chloride 100 ML IVPB SCH (08:54)
[2019-11-17] MEDS: *HR* Heparin 5,000 UNIT/ML VIAL SQ SCH ×2 (08:56→16:23)
[2019-11-17] MEDS: amLODIPine 5 MG TABLET PO SCH (08:56)
[2019-11-17] MEDS: Ketoconazole 2% CRM 15 GM TUBE TP SCH (08:56)
[2019-11-17] MEDS: Desitin (Zinc Oxide) 56 GM TUBE TP SCH ×2 (08:56→22:10)
[2019-11-17] MEDS: Insulin DETEMIR 100 UNIT/ML X5UNITS SQ SCH (20:23)
[2019-11-17] MEDS: Furosemide 240 MG in 0.9 % Sodium Chloride 96 ML IVC SCH (21:54)
[2019-11-18] MEDS: *HR* Heparin 5,000 UNIT/ML VIAL SQ SCH ×3 (01:02→17:21)
[2019-11-18] MEDS: MethylPREDNISolone 40 MG/ML VIAL IVP SCH ×3 (01:02→17:21)
[2019-11-18] MEDS: Ketoconazole 2% CRM 15 GM TUBE TP SCH ×3 (01:02→22:31)
[2019-11-18] MEDS ORDERED: Nitroglycerin 0.4 MG TAB.SUBL SL ONE (03:43)
[2019-11-18] MEDS ORDERED: Furosemide 40 MG/4 ML VIAL ONE ×2 (03:44→04:04)
[2019-11-18] MEDS ORDERED: Furosemide 40 MG/4 ML VIAL IVP ONE (03:46)
[2019-11-18] MEDS ORDERED: Nitroglycerin 0.4 MG TAB.SUBL SL PRN (03:46)
[2019-11-18] MEDS ORDERED: Haloperidol Lactate 5 MG/ML VIAL IVP ONE (04:09)
[2019-11-18 04:31] LABS: Hematocrit 25.8 % (35.3-44.9); Hemoglobin 8.4 g/dL (11.5-15.4); Mean Corpuscular HGB Conc 32.6 g/dL (31.6-35.5); Mean Corpuscular Volume 92.1 fL (83.0-100.0); Mean Platelet Volume 11.5 fL (9.4-12.4); Platelet Count 196 K/mcL (140-400); Red Cell Distribution Width 15.4 % (11.5-14.5)
[2019-11-18 04:46] LABS: Calcium 7.8 mg/dL (8.6-10.3); Magnesium 1.6 mg/dL (1.6-2.6); Potassium 3.6 mEq/L (3.5-5.1)
[2019-11-18] MEDS: Ipratropium/Albuterol Neb 3 ML IH SCH (04:48)
[2019-11-18] MEDS: Famotidine 20 MG/2 ML VIAL IVP SCH (05:06)
[2019-11-18] MEDS: Levalbuterol Neb 1.25 MG/3 ML IH SCH ×5 (07:52→23:19)
[2019-11-18] MEDS: Furosemide 20 MG/2 ML VIAL IVP SCH ×2 (09:01→17:21)
[2019-11-18] MEDS: Insulin LISPRO 300 UNITS/3 ML VIAL SQ SCH ×3 (09:01→17:21)
[2019-11-18] MEDS: amLODIPine 5 MG TABLET PO SCH (09:01)
[2019-11-18] MEDS: Desitin (Zinc Oxide) 56 GM TUBE TP SCH ×2 (09:02→22:32)
[2019-11-18] MEDS ORDERED: *HR* Heparin 5,000 UNIT/ML VIAL IVP PRN ×2 (18:02)
[2019-11-18] MEDS ORDERED: *HR* Heparin 5,000 UNIT/ML VIAL IVP ONE (18:02)
[2019-11-18 19:35] LABS: Hematocrit 26.4 % (35.3-44.9); Hemoglobin 8.7 g/dL (11.5-15.4); Mean Corpuscular Hemoglobin 30.1 pg (28.0-33.3); Mean Corpuscular Volume 91.3 fL (83.0-100.0); Mean Platelet Volume 11.9 fL (9.4-12.4); Platelet Count 137 K/mcL (140-400); Red Blood Count 2.89 M/mcL (3.82-4.97); Red Cell Distribution Width 15.5 % (11.5-14.5); White Blood Count 8.3 K/mcL (4.3-11.1)
[2019-11-18] MEDS: Heparin 25,000 UNIT/250 ML D5W 25,000 UNIT/250 ML IV.SOLN IVC SCH (22:18)
[2019-11-18] MEDS: Insulin DETEMIR 100 UNIT/ML X5UNITS SQ SCH (22:20)
[2019-11-18] MEDS: DiphenhydraMINE CREAM 28.4 GM TUBE TP PRN (22:32)
[2019-11-19 00:49] LABS: INR 1.3; Prothrombin Time 15.3 Seconds (9.4-12.1)
[2019-11-19 00:52] LABS: Heparin anti-factor XA UFH 1.18 IU/mL (0.30-0.70)
[2019-11-19] MEDS: Levalbuterol Neb 1.25 MG/3 ML IH SCH ×6 (03:36→23:16)
[2019-11-19 03:46] LABS: Hematocrit 22.9 % (35.3-44.9); Hemoglobin 7.9 g/dL (11.5-15.4); Mean Corpuscular HGB Conc 34.5 g/dL (31.6-35.5); Mean Corpuscular Volume 89.8 fL (83.0-100.0); Mean Platelet Volume 12.7 fL (9.4-12.4); Platelet Count 122 K/mcL (140-400); Red Blood Count 2.55 M/mcL (3.82-4.97); Red Cell Distribution Width 15.4 % (11.5-14.5); White Blood Count 4.7 K/mcL (4.3-11.1)
[2019-11-19 04:13] LABS: Troponin I 0.26 ng/mL (< 0.04)
[2019-11-19 04:36] LABS: Calcium 7.6 mg/dL (8.6-10.3); Potassium 2.7 mEq/L (3.5-5.1)
[2019-11-19] MEDS: MethylPREDNISolone 40 MG/ML VIAL IVP SCH ×2 (05:26→18:23)
[2019-11-19] MEDS: Insulin LISPRO 300 UNITS/3 ML VIAL SQ SCH ×3 (09:22→18:23)
[2019-11-19] MEDS: Furosemide 20 MG/2 ML VIAL IVP SCH ×2 (09:23→18:22)
[2019-11-19] MEDS: amLODIPine 5 MG TABLET PO SCH (09:23)
[2019-11-19] MEDS: Desitin (Zinc Oxide) 56 GM TUBE TP SCH ×2 (09:23→21:09)
[2019-11-19] MEDS: Ketoconazole 2% CRM 15 GM TUBE TP SCH ×2 (09:25→21:09)
[2019-11-19] MEDS ORDERED: Potassium Chloride 40 MEQ, Lidocaine 1% 2 ML in D5% in Water 500 ML IVPB ONE (10:05)
[2019-11-19] MEDS: DAPTOmycin 500 MG in 0.9 % Sodium Chloride 100 ML IVPB SCH (11:07)
[2019-11-19] MEDS: Insulin DETEMIR 100 UNIT/ML X5UNITS SQ SCH (21:10)
[2019-11-20] MEDS: Levalbuterol Neb 1.25 MG/3 ML IH SCH ×5 (04:16→20:00)
[2019-11-20] MEDS: MethylPREDNISolone 40 MG/ML VIAL IVP SCH ×2 (05:02→17:17)
[2019-11-20] MEDS: Heparin 25,000 UNIT/250 ML D5W 25,000 UNIT/250 ML IV.SOLN IVC SCH ×2 (05:02→19:08)
[2019-11-20 06:17] LABS: Hematocrit 26.3 % (35.3-44.9); Hemoglobin 8.7 g/dL (11.5-15.4); Mean Corpuscular HGB Conc 33.1 g/dL (31.6-35.5); Mean Corpuscular Volume 90.7 fL (83.0-100.0); Mean Platelet Volume 11.6 fL (9.4-12.4); Platelet Count 155 K/mcL (140-400); Red Cell Distribution Width 15.2 % (11.5-14.5)
[2019-11-20 06:25] LABS: White Blood Count 7.6 K/mcL (4.3-11.1)
[2019-11-20 06:36] LABS: Calcium 8.1 mg/dL (8.6-10.3); Potassium 2.9 mEq/L (3.5-5.1)
[2019-11-20] MEDS ORDERED: Potassium Chloride 40 MEQ, Lidocaine 1% 2 ML in D5% in Water 500 ML IVPB ONE (08:03)
[2019-11-20] MEDS: amLODIPine 5 MG TABLET PO SCH (10:26)
[2019-11-20] MEDS: Furosemide 20 MG/2 ML VIAL IVP SCH ×2 (10:26→17:17)
[2019-11-20] MEDS: Ketoconazole 2% CRM 15 GM TUBE TP SCH ×2 (10:29→20:21)
[2019-11-20] MEDS: Desitin (Zinc Oxide) 56 GM TUBE TP SCH ×2 (10:29→20:22)
[2019-11-20] MEDS: Insulin LISPRO 300 UNITS/3 ML VIAL SQ SCH ×3 (10:30→17:17)
[2019-11-20 14:15] LABS: ABG Base Excess 8 mEq/L (-2 to 3); ABG HCO3 31 mEq/L (21-27); ABG Oxygen Saturation 93 % (95-98); ABG PCO2 34 mmHg (35-45); ABG PH 7.56 pH Units (7.32-7.45); ABG PO2 57 mmHg (85-104); ABG TCO2 32 mEq/L (20-26)
[2019-11-20] MEDS: Sennosides/Docusate Sodium TABLET PO SCH (20:20)
[2019-11-20] MEDS: Insulin DETEMIR 100 UNIT/ML X5UNITS SQ SCH (20:20)
[2019-11-20] MEDS: Doxycycline 100 MG in 0.9 % Sodium Chloride Mini Bag 100 ML IVPB SCH (20:21)
[2019-11-21] MEDS ORDERED: Haloperidol Lactate 5 MG/ML VIAL IVP ONE (00:06)
[2019-11-21] MEDS ORDERED: *HR* Promethazine 25 MG/ML VIAL IVP ONE (00:08)
[2019-11-21] MEDS: Levalbuterol Neb 1.25 MG/3 ML IH SCH ×7 (00:47→23:23)
[2019-11-21 01:32] LABS: Hematocrit 24.1 % (35.3-44.9); Mean Corpuscular HGB Conc 33.2 g/dL (31.6-35.5); Mean Corpuscular Hemoglobin 30.4 pg (28.0-33.3); Mean Corpuscular Volume 91.6 fL (83.0-100.0); Mean Platelet Volume 11.9 fL (9.4-12.4); Platelet Count 140 K/mcL (140-400); Red Blood Count 2.63 M/mcL (3.82-4.97); Red Cell Distribution Width 15.5 % (11.5-14.5); White Blood Count 8.3 K/mcL (4.3-11.1)
[2019-11-21 01:53] LABS: Calcium 7.9 mg/dL (8.6-10.3)
[2019-11-21] MEDS: Doxycycline 100 MG in 0.9 % Sodium Chloride Mini Bag 100 ML IVPB SCH (05:42)
[2019-11-21] MEDS: MethylPREDNISolone 40 MG/ML VIAL IVP SCH (05:42)
[2019-11-21] MEDS ORDERED: Potassium Chloride 40 MEQ, Lidocaine 1% 2 ML in 0.9 % Sodium Chloride 500 ML IVPB ONE ×2 (08:17→15:24)
[2019-11-21] MEDS ORDERED: Piperacillin/Tazobactam 3.375 GM in 0.9 % Sodium Chloride Mini Bag 100 ML IVPB SCH (08:17)
[2019-11-21] MEDS: Heparin 25,000 UNIT/250 ML D5W 25,000 UNIT/250 ML IV.SOLN IVC SCH (09:55)
[2019-11-21] MEDS: Insulin LISPRO 300 UNITS/3 ML VIAL SQ SCH ×2 (09:58→16:28)
[2019-11-21] MEDS: Furosemide 20 MG/2 ML VIAL IVP SCH (10:00)
[2019-11-21] MEDS: Sennosides/Docusate Sodium TABLET PO SCH ×2 (13:39→20:37)
[2019-11-21] MEDS: Ketoconazole 2% CRM 15 GM TUBE TP SCH ×2 (13:51→20:37)
[2019-11-21] MEDS: Desitin (Zinc Oxide) 56 GM TUBE TP SCH ×2 (13:51→20:37)
[2019-11-21] MEDS: *HR* LORazepam Oral Conc 2 MG/ML SL PRN (15:54)
[2019-11-21] MEDS: *HR* HYDROmorphone 2 MG/ML SYRINGE IVP PRN (15:55)
[2019-11-21] MEDS ORDERED: Furosemide 20 MG/2 ML VIAL IVP SCH (17:00)
[2019-11-21 23:54] LABS: blaKPC Carbapenem-Resist Gene Not Detected (Not Detect); mecA Methicillin-Resist Gene DETECTED (Not Detect)
[2019-11-21 23:55] LABS: Acinetobacter baumannii by PCR Not Detected (Not Detect); Candida albicans by PCR Not Detected (Not Detect); Candida glabrata by PCR Not Detected (Not Detect); Candida krusei by PCR Not Detected (Not Detect); Candida parapsilosis by PCR Not Detected (Not Detect); Candida tropicalis by PCR Not Detected (Not Detect); Enterobacter cloacae Cmplx PCR Not Detected (Not Detect); Enterobacteriaceae by PCR Not Detected (Not Detect); Enterococcus by PCR Not Detected (Not Detect); Escherichia coli by PCR Not Detected (Not Detect); Klebsiella oxytoca by PCR Not Detected (Not Detect); Klebsiella pneumoniae by PCR Not Detected (Not Detect); Proteus by PCR Not Detected (Not Detect); Pseudomonas aeruginosa by PCR Not Detected (Not Detect); Serratia marcescens by PCR Not Detected (Not Detect); Staphylococcus aureus by PCR DETECTED (Not Detect); Streptococcus agalactiae(B)PCR Not Detected (Not Detect); Streptococcus by PCR Not Detected (Not Detect); Streptococcus pneumoniae PCR Not Detected (Not Detect); Streptococcus pyogenes (A) PCR Not Detected (Not Detect); vanA/B Vancomycin-Resist Genes Not Detected (Not Detect)
[2019-11-22] MEDS: *HR* HYDROmorphone 2 MG/ML SYRINGE IVP PRN ×2 (02:58→16:52)
[2019-11-22] MEDS: *HR* LORazepam Oral Conc 2 MG/ML SL PRN ×4 (02:59→21:22)
[2019-11-22] MEDS: Levalbuterol Neb 1.25 MG/3 ML IH SCH ×5 (04:11→20:29)
[2019-11-22] MEDS: Desitin (Zinc Oxide) 56 GM TUBE TP SCH ×2 (16:33→22:40)
[2019-11-22] MEDS: Sennosides/Docusate Sodium TABLET PO SCH ×2 (16:33→22:40)
[2019-11-22] MEDS: Ketoconazole 2% CRM 15 GM TUBE TP SCH (22:40)
[2019-11-23] MEDS: Levalbuterol Neb 1.25 MG/3 ML IH SCH ×4 (00:35→11:39)
[2019-11-23] MEDS: *HR* HYDROmorphone 2 MG/ML SYRINGE IVP PRN (02:55)
[2019-11-23] MEDS: Sennosides/Docusate Sodium TABLET PO SCH (07:33)
[2019-11-23] MEDS: Ketoconazole 2% CRM 15 GM TUBE TP SCH (07:36)
[2019-11-23] MEDS: Desitin (Zinc Oxide) 56 GM TUBE TP SCH (07:36)
[2019-11-23] MEDS: *HR* LORazepam Oral Conc 2 MG/ML SL PRN (10:18)
[2019-11-23] MEDS ORDERED: *HR* LORazepam Oral Conc 2 MG/ML SL PRN (10:40)
[2019-11-23] MEDS ORDERED: Ipratropium/Albuterol Neb 3 ML IH PRN (11:41)
[2019-11-23] MEDS: Haloperidol Oral Conc 10 MG/5 ML UDC PO SCH ×3 (11:42→22:18)
[2019-11-23] MEDS: *HR* LORazepam Oral Conc 2 MG/ML SL SCH ×3 (15:51→23:35)
[2019-11-23] MEDS: Atropine Sulfate 1% 40 DROP/2 ML BOTTLE SL PRN (16:43)
[2019-11-24] MEDS: Haloperidol Oral Conc 10 MG/5 ML UDC PO SCH ×2 (04:05→10:05)
[2019-11-24] MEDS: *HR* LORazepam Oral Conc 2 MG/ML SL SCH ×2 (05:43→11:43)
[2019-11-24] MEDS: Atropine Sulfate 1% 40 DROP/2 ML BOTTLE SL PRN (10:06)
[2019-11-24 11:41] VITALS: BP 102/63
== END 2019-11-24 14:10 | disposition hospice, home (50) | DRG 280 ==
LOC: ICNU → SUATTDRO 05:38 → 2NNU 11-16 06:29 → 2NENU 11-17 09:31 → 2ANU 11-21 15:46
PROVIDERS: ADMIT Internal Medicine; ATTEND Internal Medicine